=== PATIENT | female | born 1950 | race Caucasian/White ===

== ENCOUNTER 2020-01-24 13:02 | Emergency (ER) | payer OTHER ==
--- OUTSIDE RECORDS SUMMARY | 2020-01-24 13:08 | XMS REPORT ---
:1950 [facility] Address [address] [place] [address] [address]. [address] [place] [address] Care Team Providers Name Role Phone Unavailable Unavailable Unavailable Problems This patient has no known problems. Allergies, Adverse Reactions, Alerts This patient has no known allergies or adverse reactions. Medications This patient has no known medications. Results Test Description Test Time Test Comments Text Results Atomic Results Result Comments RAD, SPINE, 2019-04-04 12:52:00 Reason for FINAL REPORT PATIENT ID: LUMBAR, COMPLETE Exam:->History of [id number] Lumbar Spine (MIN 4 VIEWS) lumbar fusion (Z98.1); Radiographs: Four views Low back pain without including sciatica, unspecified flexion-extension views. back pain laterality, HISTORY: Pain. History unspecified chronicity of lumbar fusion. Low (M54.5) back pain.COMPARISON: None available. DISCUSSION:Some of the osseous structures are partially obscured by stool and bowel gas. There are five non-rib bearing lumbar vertebral bodies.Posterior fusion with transpedicular screws and interconnecting rods at L5-S1 with intervertebral disc prosthesis with grade 2 anterolisthesis and moderate disc space narrowing.No instability identified flexion-extension views.Remaining lumbar spine is unremarkable.No displaced fracture or compression deformity is identified. Facets:The facet joints are unremarkable. IMPRESSION:Status post posterior fusion of L5 on S1 with grade 2 anterolisthesis and moderate disc space narrowing despite having a disc prosthesis. No instability on flexion-extension views. Signed: Miguel Angel Ojeda MDReport Verified Date/Time: 04/04/2019 12:52:10 Reading Location: [facility] Reading Room [address] [place] [address]
[2020-01-24 14:00] LABS: Absolute Lymphocytes (CBC) 0.8 K/uL (0.7-4.9); Basophils % 0.4 % (0-1.3); Hematocrit 45.1 % (36.0-45.0); Lymphocytes % 10.7 % (15.3-44.8); MPV 7.5 fL (7.6-11.3); RBC Red Blood Cell Count 4.91 M/uL (3.86-4.86)
[2020-01-24 14:19] LABS: BUN Blood Urea Nitrogen 7 mg/dL (7-18); Bicarbonate 24 mmol/L (21-32); Glucose Level 151 mg/dL (74-106); Potassium 3.6 mmol/L (3.5-5.1); Sodium Level 132 mmol/L (136-145); Troponin (Emerg Dept Use Only) < 0.02 ng/mL (0.0-0.045)
--- NOTE | 2020-01-24 14:24 | ER ---
Nurse's Notes Formerly [facility] Name: Sierra Tejada Age: 69 yrs Sex: Female : 1950 Arrival Date: 01/24/2020 Time: 13:06 Bed 15 Private MD: Diagnosis: Pain in right shoulder Presentation: 01/23 13:09 Chief complaint: Patient states: R arm pain all the way to the neck started around 7-8 ca1 this morning. Denies cough, congestion and fever. Coronavirus screen: Patient denies fever greater than 100.4F, cough, shortness of breath, or difficulty breathing. Proceed with normal triage process. Ebola Screen: Patient negative for fever greater than or equal to 101.5 degrees Fahrenheit, and additional compatible Ebola Virus Disease symptoms Patient denies exposure to infectious person. Patient denies travel to an Ebola-affected area in the 21 days before illness onset. No symptoms or risks identified at this time. Initial Sepsis Screen: Does the patient meet any 2 criteria? No. Patient's initial sepsis screen is negative. Does the patient have a suspected source of infection? No. Patient's initial sepsis screen is negative. Risk Assessment: Do you want to hurt yourself or someone else? Patient reports no desire to harm self or others. Onset of symptoms was January 24, 2020 at 07:00. 13:09 Method Of Arrival: Ambulatory ca1 13:09 Acuity: ANNA 3 ca1 Historical: - Allergies: 13:13 Iodine; ca1 13:35 atorvastatin; ca1 13:35 Isosorbide Mononitrate; ca1 13:35 Losartan; ca1 - Home Meds: 13:31 Coreg CR 80 mg Oral CM24 1 cap once daily [Active]; propafenone 325 mg Oral cp12 1 cap ca1 daily [Active]; Premarin 1.25 mg Oral tab 1 tab weekly [Active]; vitamin E 1,000 unit Oral cap 1,000 unit daily [Active]; loratadine 10 mg oral tab 1 tab as needed [Active]; aspirin 325 mg Oral TbEC 1 tab once daily [Active]; levothyroxine 125 mcg tab 1 tab once daily [Active]; furosemide 20 mg Oral tab 1 tab every other day [Active]; 13:35 amlodipine 5 mg tab 1 tab once daily [Active]; ca1 - PMHx: 13:13 Hypertension; Intestinal problems/pain; Myocardial infarction; CAD; ca1 - PSHx: 13:13 Stent; Tonsillectomy; Hysterectomy; Cholecystectomy; Back Surgery; Cataracts; ca1 - Immunization history:: Adult Immunizations up to date, Pneumococcal vaccine is up to date, Flu vaccine is not up to date. - Social history:: Smoking status: Patient reports the use of cigarette tobacco products, smokes one pack cigarettes per day. - Family history:: not pertinent. - Hospitalizations: : No recent hospitalization is reported. Screenin:30 Abuse screen: Denies threats or abuse. Nutritional screening: No deficits noted. vc Tuberculosis screening: No symptoms or risk factors identified. Fall Risk None identified. Assessment: 14:29 General: Appears in no apparent distress. uncomfortable, Behavior is calm, cooperative, vc appropriate for age. Pain: Complains of pain in anterior aspect of right shoulder Pain radiates to right sternocleidomastoid. Vital Signs: 13:09 BP 170 / 97; Pulse 82; Resp 16 S; Temp 97.4(TE); Pulse Ox 96% on R/A; Weight 94.35 kg ca1 (R); Height 5 ft. 6 in. (167.64 cm) (R); Pain 10/10; 14:00 BP 164 / 91; Pulse 81; Resp 14; Pulse Ox 97% on R/A; vc 13:09 Body Mass Index 33.57 (94.35 kg, 167.64 cm) ca1 ED Course: 13:06 Patient arrived in ED. fj1 13:11 Triage completed. ca1 13:13 Arm band placed on right wrist. ca1 13:17 Amando Rao MD is Attending Physician. rn 13:30 Patient has correct armband on for positive identification. Placed in gown. Side rails vc up X2. plywood and veneer repairer on. Pulse ox on. NIBP on. 13:31 Ana M Farias, ELIAZAR is Primary Nurse. vc 13:32 EKG done, by business office technician. reviewed by Amando Rao MD. at1 13:53 XRAY Chest (1 view) In Process Unspecified. EDMS 14:45 No provider procedures requiring assistance completed. IV discontinued, intact, vc bleeding controlled, No redness/swelling at site. Pressure dressing applied. Administered Medications: No medications were administered Outcome: 14:23 Discharge ordered by . rn 14:45 Discharged to home ambulatory. vc 14:45 Condition: good 14:45 Discharge instructions given to patient, Instructed on discharge instructions, follow up and referral plans. Demonstrated understanding of instructions, follow-up care. 14:46 Patient left the ED. vc Signatures: Dispatcher [employer] EDAmando Duque MD MD rn Xenia Miner, sales broker EKG Tat1 Sienna Zabala RN RN ca1 Ana M Farias RN RN vc James, Frank fj1
--- NOTE | 2020-01-24 14:24 | EDPHYS ---
Physician Documentation [facility] Name: Sierra Tejada Age: 69 yrs Sex: Female : 1950 Arrival Date: 01/24/2020 Time: 13:06 Bed 15 Private MD: ED Physician Amando Rao HPI: 01/23 13:40 This 69 yrs old Female presents to ER via Ambulatory with complaints of rn ROTATOR CUFF PAIN THAT IS RADIATING AND SHOOTING UP THE NECK. 13:40 The patient or guardian complains of pain. The complaints affect the anterior aspect of rn right shoulder. Onset: The symptoms/episode began/occurred at an unknown time. Modifying factors: The symptoms are alleviated by nothing. the symptoms are aggravated by movement, lifting weight, bending arm. Severity of symptoms: At their worst the symptoms were moderate, in the emergency department the symptoms are unchanged. The patient has experienced similar episodes in the past. Reports chronic bilateral shoulder/rotator cuff problems, hurts to move arms and lift things, has been told needs surgery but has been pushed back. Denies new injury. No chest pain/sob/productive cough. Reports today pain shot up to neck so came in for eval as she has had 2 heart attacks in past. Reports that these symptoms do not feel anything like previous heart attacks. . Historical: - Allergies: 13:13 Iodine; ca1 13:35 atorvastatin; ca1 13:35 Isosorbide Mononitrate; ca1 13:35 Losartan; ca1 - Home Meds: 13:31 Coreg CR 80 mg Oral CM24 1 cap once daily [Active]; propafenone 325 mg Oral cp12 1 cap ca1 daily [Active]; Premarin 1.25 mg Oral tab 1 tab weekly [Active]; vitamin E 1,000 unit Oral cap 1,000 unit daily [Active]; loratadine 10 mg oral tab 1 tab as needed [Active]; aspirin 325 mg Oral TbEC 1 tab once daily [Active]; levothyroxine 125 mcg tab 1 tab once daily [Active]; furosemide 20 mg Oral tab 1 tab every other day [Active]; 13:35 amlodipine 5 mg tab 1 tab once daily [Active]; ca1 - PMHx: 13:13 Hypertension; Intestinal problems/pain; Myocardial infarction; CAD; ca1 - PSHx: 13:13 Stent; Tonsillectomy; Hysterectomy; Cholecystectomy; Back Surgery; Cataracts; ca1 - Immunization history:: Adult Immunizations up to date, Pneumococcal vaccine is up to date, Flu vaccine is not up to date. - Social history:: Smoking status: Patient reports the use of cigarette tobacco products, smokes one pack cigarettes per day. - Family history:: not pertinent. - Hospitalizations: : No recent hospitalization is reported. ROS: 13:40 Constitutional: Negative for fever, chills, and weight loss, Eyes: Negative for injury, rn pain, redness, and discharge, Neck: Negative for injury, and swelling, Cardiovascular: Negative for chest pain, palpitations, and edema, Respiratory: Negative for shortness of breath, cough, wheezing, and pleuritic chest pain, Abdomen/GI: Negative for abdominal pain, nausea, vomiting, diarrhea, and constipation, Back: Negative for injury and pain, MS/Extremity: Negative for injury and deformity, Skin: Negative for injury, rash, and discoloration, Neuro: Negative for headache, weakness, numbness, tingling, and seizure. Exam: 13:40 Constitutional: This is a well developed, well nourished patient who is awake, alert, rn and in no acute distress. Head/Face: Normocephalic, atraumatic. Neck: Trachea midline, no thyromegaly or masses palpated, and no cervical lymphadenopathy. Supple, full range of motion without nuchal rigidity, or vertebral point tenderness. No Meningismus. Cardiovascular: Regular rate and rhythm. No pulse deficits. Respiratory: Speaking full sentences. No increased work of breathing, no retractions or nasal flaring. Abdomen/GI: soft, non-tender MS/ Extremity: Pulses equal, no cyanosis. Neurovascular intact. Full, normal range of motion. Equal circumference. Neuro: Awake and alert, GCS 15, oriented to person, place, time, and situation. Cranial nerves II-XII grossly intact. Motor strength 5/5 in all extremities. Sensory grossly intact. Cerebellar exam normal 14:20 ECG was reviewed by the Attending Physician. rn Vital Signs: 13:09 BP 170 / 97; Pulse 82; Resp 16 S; Temp 97.4(TE); Pulse Ox 96% on R/A; Weight 94.35 kg ca1 (R); Height 5 ft. 6 in. (167.64 cm) (R); Pain 10/10; 14:00 BP 164 / 91; Pulse 81; Resp 14; Pulse Ox 97% on R/A; vc 13:09 Body Mass Index 33.57 (94.35 kg, 167.64 cm) ca1 MDM: 13:17 Patient medically screened. rn 14:20 Differential diagnosis: tendonitis. Differential diagnosis: CT, CAD. Data reviewed: rn vital signs, nurses notes. Counseling: I had a detailed discussion with the patient and/or guardian regarding: the historical points, exam findings, and any diagnostic results supporting the discharge/admit diagnosis, lab results, radiology results, the need for outpatient follow up, to return to the emergency department if symptoms worsen or persist or if there are any questions or concerns that arise at home. Special discussion: I discussed with the patient/guardian in detail that at this point there is no indication for admission to the hospital. It is understood, however, that if the symptoms persist or worsen the patient needs to return immediately for re-evaluation. ED course: Neg trop, no acute infarct on ecg, will dc home as symptoms consistent with her tendinitis. Not likely cardiac given negative findings and does not feel at all like her previous MIs. . 01/23 13:33 Order name: Basic Metabolic Panel; Complete Time: 14:19 rn 01/23 13:33 Order name: CBC with Diff; Complete Time: 14:38 rn 01/23 13:33 Order name: Troponin (emerg Dept Use Only); Complete Time: 14:19 rn 01/23 13:33 Order name: XRAY Chest (1 view) rn 01/23 13:33 Order name: EKG; Complete Time: 13:34 rn 01/23 14:36 Order name: CBC Smear Scan; Complete Time: 14:38 EDMS 01/23 13:33 Order name: IV Start; Complete Time: 14:00 rn 01/23 13:33 Order name: Cardiac monitoring; Complete Time: 13:58 rn 01/23 13:33 Order name: EKG - Nurse/Tech; Complete Time: 13:34 rn 01/23 13:33 Order name: Labs collected and sent; Complete Time: 13:58 rn 01/23 13:33 Order name: O2 Per Protocol; Complete Time: 13:59 rn 01/23 13:33 Order name: O2 Sat Monitoring; Complete Time: 14:00 rn EC:20 Rate is 78 beats/min. Rhythm is regular. QRS is positive in lead I and negative in lead rn aVF. [place] interval is normal. QRS interval is normal. QT interval is normal. No Q waves. T waves are Normal. No ST changes noted. Clinical impression: NSR w/ Non-specific ST/T Changes. Interpreted by me. Reviewed by me. Administered Medications: No medications were administered Disposition: 01/24/20 14:23 Discharged to Home. Impression: Pain in right shoulder. - Condition is Stable. - Discharge Instructions: Joint Pain, Arthritis, Shoulder Pain. - Medication Reconciliation Form, Thank You Letter, Antibiotic Education, Prescription Opioid Use form. - Follow up: Private Physician; When: As needed; Reason: Recheck today's complaints, Re-evaluation by your physician. - Problem is chronic. - Symptoms have improved. Signatures: Dispatcher [employer] EDMS Amando Rao MD MD rn Acob, ELIAZAR El RN ca1 Ana M Farias RN RN vc Corrections: (The following items were deleted from the chart) 14:46 14:23 01/24/2020 14:23 Discharged to Home. Impression: Pain in right shoulder. vc Condition is Stable. Forms are Medication Reconciliation Form, Thank You Letter, Antibiotic Education, Prescription Opioid Use. Follow up: Private Physician; When: As needed; Reason: Recheck today's complaints, Re-evaluation by your physician. Problem is chronic. Symptoms have improved. rn
[2020-01-24 14:36] LABS: Blood Morphology Comment NOT SEEN (NOT SEEN); Platelet Estimate ADEQ; Urine White Blood Cell Casts OK
--- NOTE | 2020-01-24 14:36 | EKG ---
Test Date: 2020-01-24 Test Time: 13:19:35 Acoustical Installer: LETY MEASUREMENT RESULTS: Intervals: Rate: 78 AL: 188 QRSD: 96 QT: 408 QTc: 465 [place]: P: 41 AL: 188 QRS: -67 T: 37 INTERPRETIVE STATEMENTS: Normal sinus rhythm Incomplete right bundle branch block Left anterior fascicular block Possible Anteroseptal infarct, age undetermined Abnormal ECG Compared to ECG 09/28/2017 14:18:55 Incomplete right bundle-branch block now present Left anterior fascicular block now present Left-axis deviation no longer present Myocardial infarct finding still present Electronically Signed On 01-24-20 14:35:44 CDT by Vishnu Barron
--- NOTE | 2020-01-24 14:42 | RAD REPORT ---
EXAM DESCRIPTION: RAD - Chest Single View - 01/24/2020 1:53 pm CLINICAL HISTORY: right arm and neck pain, hx of both IA and shoulder problem, chest and shoulder pa in on the right COMPARISON: September 2017 TECHNIQUE: AP portable chest image was obtained 01/24/2020 1:53 pm . FINDINGS: No focal lung parenchymal process seen. Hazy opacification of the lateral left base matche s the comparison. This is believed to be soft tissue artifact. Heart and vasculature are normal. No m easurable pleural effusion and no pneumothorax. No acute bony abnormality seen. No acute aortic findi ngs suspected. IMPRESSION: No acute cardiopulmonary process.
[2020-01-24 15:08] VITALS: TEMP 97.4
[2020-01-24 15:09] VITALS: BP 164/91; O2SAT 97
== END 2020-01-24 14:46 | disposition home or self-care (01) ==
LOC: ER 13:02
DX: M25.511 Pain in right shoulder (principal); I10 Essential (primary) hypertension; I25.2 Old myocardial infarction; I25.10 Atherosclerotic heart disease of native coronary artery without angina pectoris; Z88.8 Allergy status to other drugs, medicaments and biological substances
CPT/HCPCS: 36415; 71045; 80048; 84484; 85025; 93005; 99284

== ENCOUNTER 2021-03-06 00:10 | Observation (INO) | payer OTHER ==
--- OUTSIDE RECORDS SUMMARY | 2021-03-06 00:13 | XMS REPORT | Continuity of Care Document ---
:1950 Author Organization [facility] t Address [address] [place] [address] Care Team Providers Name Role Phone LAWRENCE Primary Care Physician Unavailable SYSTEM, NOT IN Attending Clinician Unavailable BRODY Attending Clinician Unavailable Sp GARCIA Attending Clinician Shama REBOLLEDO Attending Clinician Brody GARCIA Attending Clinician SHAMA Attending Clinician Unavailable Payers Payer Name Policy Type Policy Number Effective Date Expiration Date S dave MEDICARE PART A [id number] 2014 AND B 00:00:00 CIG[employer] SENIOR [id number] 2015 SUPPLEMENT-SECOND 00:00:00 IAN ONLY GENERIC [id number] 2015 2015 00:00:00 00:00:00 Problems Condition Condition Condition Status Onset Resolution Last Treating Co mments Source Name Details Category Date Date Treatment Clinician Date 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 Social History Social Habit Start Date Stop Date Quantity Comments Source History of tobacco Cigarette Smoker MD William use Sex Assigned At MD Olsen on Cigarettes smoked 2017-02-28 2017-02-28 MD Rafal diallo current (pack per 00:00:00 00:00:00 day) - Reported Alcohol intake 2017-02-28 2017-02-28 Current drinker of MD William 00:00:00 00:00:00 alcohol (finding) Alcohol Comment 2016-02-16 2016-02-16 occaisional beer MD William 00:00:00 00:00:00 Smoking Status Start Date Stop Date Source Current every day smoker 2017-02-28 00:00:00 MD William Medications Ordered Filled Start Stop Current Ordering Indication Dosage Frequency Signature Comments Components Source Medication Medication Date Date Medication? Clinician (SIG) Name Name aspirin 325 2020-0 Yes 325mg Take 325 M D mg tablet 7-30 mg by Anderso 13:58: mouth as n 07 needed. carvedilol 2020-0 Yes 80mg Take 80 mg M D (COREG CR) 7-30 by mouth. Rafal rso 80 mg 24 hr 13:58: n capsule 07 estrogens, 2020-0 Yes 1.25mg Take 1.25 MD conjugated, 7-30 mg by Anderso (PREMARIN) 13:58: mouth. 3x n 1.25 mg 07 a week tablet propafenone 2020-0 Yes 325mg Take 325 M D (RYTHMOL 7-30 mg by Anderso SR) 325 mg 13:58: mouth n 12 hr 07 daily. capsule levothyroxi 2020-0 Yes Take by ne 7-30 mouth Anderso (SYNTHROID, 13:58: daily. n LEVOTHROID) 07 125 mcg tablet vitamin E 2020-0 Yes Take by 1,000 units 7-30 mouth Anderso capsule 13:58: daily. n 07 amLODIPine 2020-0 Yes 5mg Take 5 mg MD (NORVASC) 5 7-30 by mouth Rafal rso mg tablet 13:58: daily. n 07 loratadine 2020-0 Yes Take by 10 mg cap 7-30 mouth as Raúl o 13:58: needed. n 07 cyanocobala 2020-0 Yes 1000ug Take 1,000 MD min 7-30 mcg by Anderso (vitamin 13:58: mouth n B-12) 1000 07 daily. mcg tablet [id number] 2019- No 5mg Take 5 mg MD besylate 5 05-21 by mouth. And erso mg 13:22: 00:00 Reported n () 19 :00 on tablet 02/28/2017 hydrochloro 2019-2019- No 12.5mg Take 12.5 MD thiazide 04-30 07-09 mg by Anderso (HYDRODIURI 13:45: 00:00 mouth. 3x n L) 12.5 mg 57 :00 a week tablet ascorbic 2019- No 1000mg Take 1,000 MD acid-multiv 04-30 07-09 mg by Raúl o it-min 13:45: 00:00 mouth n (EMERGEN-C) 57 :00 daily. 1,000 mg pwep furosemide Yes 1{tbl} Take 1 MD (LASIX) 20 6-09 tablet by Rafal rso mg tablet 00:00: mouth 3 n 00 (three) times a week Monday, Monday and Monday. atorvastati 2016-10 2020- No daily. MD gan (LIPITOR) 2-04-30 Anderso 40 mg 00:00: 00:00 n tablet 00 :00 Vital Signs Vital Name Observation Time Observation Value Comments Source Systolic blood pressure 2020-05-21 13:04:26 146 mm[Hg] MD William Diastolic blood pressure 2020-05-21 13:04:26 84 mm[Hg] MD William Heart rate 2020-05-21 13:04:26 72 /min MD Maco plata Body temperature 2020-05-21 13:04:26 37 Deena MD Huma felipe Respiratory rate 2020-05-21 13:04:26 18 /min MD Huma felipe Body weight 2020-04-30 13:40:00 96 kg MD Maco plata BMI 2020-04-30 13:40:00 34.01 kg/m2 MD Maco plata Procedures Procedure Date / Time Performed Performing Clinician [facility] e CYTOLOGY NON-SENIOR BOILER OPERATOR 2020-05-21 14:01:00 Jeff Skinner MD INTERPRETATION CYTOLOGY HPV 16/18 GENOTYPING 2020-05-21 14:01:00 Jeff Skinner MD AND HIGH RISK POOL CARCINOEMBRYONIC ANTIGEN 2020-04-30 12:46:00 Petr Sesay MD Plan of Care Planned Activity Planned Date Details Comments Source Future Scheduled 2020-06-23 INFLUENZA VACCINE (#1) [facility] 00:00:00 [code = INFLUENZA Medical Ce nter VACCINE (#1)] Future Scheduled [address] [facility] - Test 00:00:00 WELLNESS (YEAR 2 or Medical Center FIRST YEAR if no IPPE) [code = MEDICARE ANNUAL WELLNESS (YEAR 2 or FIRST YEAR if no IPPE)] Future Scheduled 2014 PNEUMOCOCCAL 65+ YRS [facility] - Test 00:00:00 (1 of 1 - Medical Center [id number] PCV13) [code = PNEUMOCOCCAL 65+ YRS (1 of 1 - [id number] PCV13)] Future Scheduled [address] [facility] 00:00:00 [facility] breast (procedure) [code = 895141761] Future Scheduled [address] [facility] Test 00:00:00 [facility] colon (procedure) [code = 342342984] Encounters Start End Encounter Admission Attending Care Care Encounter Source Date/Time Date/Time Type Type Clinicians Facility Department ID 2020-04-27 Outpatient TRINA OLIVAS MDA [id number] 10:43:33 ASHLEY gan 2021-05-18 2021-05-18 Outpatient KATHLEEN SKINNER TRINA MENA [id number] 00:00:00 00:00:00 JEFF gan 2021-05-18 2021-05-18 Outpatient KATHLEEN SKINNERTRINA MDA [id number] 00:00:00 00:00:00 JEFF gan 2020-05-21 2020-05-21 Outpatient KATHLEEN SKINNER TRINA MENA [id number] 07:33:56 08:57:36 JEFF gan 2020-05-21 2020-05-21 Outpatient KATHLEEN SKINNERTRINA MDA [id number] 07:32:56 08:57:30 JEFF gan 2020-05-05 2020-05-05 Outpatient KATHLEEN SKINNER MDA MDA [id number] 00:00:00 00:00:00 JEFF gan 2020-05-05 2020-05-05 Outpatient KATHLEEN SKINNER MDA MDA [id number] 00:00:00 00:00:00 JEFF gan 2020-04-30 2020-04-30 Outpatient KATHLEEN SESAY MDA MDA [id number] 07:24:54 07:44:51 PETR gan 2020-04-30 2020-04-30 Outpatient KATHLEEN SKINNER MDA MDA [id number] 00:00:00 00:00:00 JEFF gan 2020-04-30 2020-04-30 Outpatient KATHLEEN SKINNER MDA MDA [id number] 00:00:00 00:00:00 JEFF gan 2019-05-07 2019-05-07 Outpatient KATHLEEN SKINNER MDA MDA [id number] 07:54:23 07:54:23 JEFF gan Results Test Description Test Time Test Comments Results Result Comments Source Cytology Non-Vehicle Assembler Interpretation 2020-05-29 21:43:00 Test Item Value Reference Range Interpretation Comme nts Gross p3spiHLuMXToq7mgBNHvLwDdZTBOk4cme086kWEaNZfaVmOaYvZ7zYKbKVUszKAhj5E5CEqeiVTyFnUU fvxjlOt7e9owG6kngb7jIM7vWuCeAIMjLBNeQVGcziUbFVNvdBBeGA3ukiGBl55jubk7a1baCGclhZ7n SGQiEIPonWUnc8G1XHgvfLGvUOOHi3KaaPYkSZ7kjhj Description 0b9rtVYqqa7dmu1IlUsRmUDGiRKEaSFDkfrHkPOEthJSyFV4nbnIijqe2x8apYGMlZm1zLGOdrtrpS4v fmaVqaLHyGaZxbRNeI167piaxgjf5b1dkQWSgJo2jvOtjP2kmebUtfKJwYpCcqIQmWTYrsKCGdRAxpmF msYQ2lEdnGjWqUBLvq02lsrbjF7lmqaDklABiMoUjwO (test code = DrT5kvRd4yT329TGWvLJiei9dpp5MtRePzQGBnSFTjGKAjroUdRVUpI68tDWTIU494NHBvJLAeYYUuz9 xks6lgJ2thphLwxBIrImQqbLTlKWWlDGo2kW4Kk8kvr6txtmMwuER2QWSrOQZnT1BuZV3wRTOfpANyC7 geVUUgKQpttuLmnrV0ZIPdxWDkOIbnpnEcRxOdL2QcZ [id number]) R4sJOoakCEmAoD4ZASdCSW1URohEADfEQraBnu2YCB4X1afRKV1I0wnzdCydzLpYAFmyBV2JnkiwuVfP qarC1QpEU80FTktfLKtRkk4RZJpGKh4VMljYDLeUVDfQxl0JFn6Z9qeMLWnKGIkD3BaMA8iGZZoTya5D KGdVSshezHnEMA8LPdyLUVtGAY4VZNkzTIsSoj5EFWn RLN3Z0uksfEkbsN1O6zgwAOuHVJiB3lkYZYeQGhjR1BqEN3cBBfuBbo8MER7FChltiPiSNo1OXrpMSJz LEv9TJCtqBNwQqN1BLWaMQL8XFldkgUrxyR5INsvoEPbPIpnJ3htETTkMHhmD4RgWE4oDOtyBxt8VIAh TdtcfoZsMjZnMTgfKOJrYwAzVDDraCWdJfK6FTCpFAM kMVwbbnUdpoMqOQtnoDBqFnV1W9avXXQcLUFxC4ZfNR0rERFyLos9FYZ9RFzmjoUjXOhguwQkrlGqVyt 0SWY3IQe6Pqkhp8V5rXQmlMFjwRfdgiTfdAVgHYuvSgQlS325RPFjRUfdWITenpnkZpz1t1bnGwShUPC nfU7bDKD8jYmoxkSgzTXoZZhsUmV8Q006VZY0IUbwPV GhjeczFAf7k3nwHoWcIAOeuB2pUJU7tE6YPrbcCJBgxcatRFs1HVezEQFfjtztLwT7ABleOXCjnEq6XY uiXCOhavV7FsrrIKLerAdtRBexMTYkIbbnYGlpOYOhCFQ4HiHqQVUjf3Bwqej3KlUiEcHtTVSODskdfP XpHAL8WXP6VfDmIGMtBdiwWMAcCQ7qlCvcbSp9cEaoV WUascQ9hCMbAQibn6xnVCN5h5qtqzhsBZHrGFheRx1syCOnnIrsKoLqCEWfDHe3sW58SRNjzW9brSVqU Rh6WKFtriRwbUbkoY4pRwClNWXWZDFwxVOtJPYrTWD2pwElDYR3qGV0yCYwQUXlba9ioMFfeHh7 Major Cellular atypia A Classificati on (test code = 9839) Diagnosis g4yeoICnMGWltJA6FIYiGZXlh1fxn4NdfXUqqTIxKUrtfTZdnlJbcx57qXS7kT12GH2aTYFtXxF9HZQa fxO6Sso4JYEhLQKrwBGfL792v5nib1vgdwFcwGJ6hOulDDCkOFSsNOtjWXSfIwPqOE3lKE4ksQIAPE1k oCnmS0qlUbmzzMClFMObHfqcPQRxhMo5VtTuvRvcCzM (test code = cIZEjyKwfLaNmcW2umMIvy6CqJSGmxFTipXhqhbevWC6orOM4hiOuf1Sity0umCwfpuY1w64uYWNvpFQ hvkWkgLJcRAEuWB27XXUddyPZvCnmqNBhlUGuwDUgrV54paJdVOhcgkDuWvD3gaSeqMAcfNwqVPUbc6x wauplbIDhyoQgHXjOV6UhTXYgEVHbwn4= 34) Comment e4skhUBwWQAodVK9DKSqDMZyn7nic5RnuTSscYIgYZmcrQWsrkGfbp85tFY9aY31JZ5vIIMlRbP0JUEt emJ5Mbb9SKBxFGArmASuI626f7joh7jtueVelMI0cYvdYBLlUKZhXVvpHELgBpHwJGfxGLU3wgGyhjMy lLtzkYCvsLDxFZlMEeH6PFF9cW4oKThGJN9YBjClIHQ (test code = pCHYqOTimFT7kG9H0iQCeSiglVAH0 9835) Retained/Bio r6pmlHPiQGPtsAD9QUDaGTHdr9okb5YgoYCanZPeJOmidITxqrLizr20vHM7hB22RO2uVHDxRqH2SIGv pqB1Zss6SVAeLHMdyMPyY408f4ldu2nbfsVsaID0jZioNNHvUQOxOLipVGQxTxGtIaI2TDbjZHW1YQXi T3jrPOK6 marker Testing (test code = 9838) Informationa t5mxuSXiEXGgeIYaQyUiGEUgIVMsv9rbELPziHWhUeFdZnLsWdQsNzhvdLByYRGcVdGht7hrk433eXVb w2ckGJStVhN2tAJyQGAmrZUuP433AHBfBOstr7aty0KbXSUdeAXqx2G0NCNYLCbaVEGIZFm6d2xbEvFz VmQ2kDOhEEdvH2ygfjIvlWXsZCUxUGg9iJ68IEJqwX5 l Points lpFLjFYrtcoYcPlF7PSdwAEEqJnM1AQMkpWFaOMThL0neBKJnDRowPSRqEEycoKHwEEJ4gKjhj9V8uOS kxTDnqPlbFoHzOpJzOgYTc8OyZFl5hMidV0FiRDZdHmY0hPTcZVXrAGhyFXGpFZMibvN7qQ30TBhrxdY 0xQAuu7Vnu04zt380rC1msOChVWJ7ZMHaUWPxcJArVM (test code = CdETS8HCXzoGCiR9qtSJQwSW2rhldjVJxfTIcoVGEfvCU5XTOuvREgF3DrKRGsDDofSZWvcsb6QiApXz 4cbHByqSjeNNmyl1cnr4kstMErOle1XEOqXyVfGpbqYTwsz0Epf0bvGCRrzx2tDKK8gPUchZauz6V8hQ DuCMQwuDQbhkPzLLArWcQ1WJfgPH6kek19TOKsDPJ2m 9836) t5osWRfsYzgntOfpMQcVUjoE3DpHAVhw527RWWyB5YtGTJmi1V3ybCyUiHzPPWtoCK2gbV4WLEeRKj2f GZbiyW5sfBacPFwN4zypQ6hZEFuIY1beprfa9iyFQyrADisHAUrrNO9nmJ7RWRvkLXdU0VxqL8bIGItF QasOGKacus9VpIwSg5prXFkhVfxONirYhizHAcdWSZz duGkpnRpaYrbAAKrYBFfUMyrVBQaSDzvKVPrJXVgZlLvgZmkbMazsJ5sCaFqVpZuDAauOE2eCJEjH8df zNAdTHZuXANrE4sfMgYogE6niLvrMKgctmW8IWwtM77oDOX9OVX0exEfFXGcrtFzXZYfPPJwBP4bwZIb SYNkEAAwRM7rLBD4EDuvuRSrQXUkHSHxTKIbz0WsAL2 sYWOlaAIgIPJ3HZVxz9UdD8IcDUS0BNGtmA5kRRRuyMYVNDCPXIMFzfLxhvFkdiUMQKJqu0cgI1icGJ3 oCXmyFl9uREQvzokvBYJnuIZnzrFmDKUxHDAtKJToj2ZqFDhnxjIocm27XBEwNL7ze4GrC7wewRVrxYz 5HRKlZPSdQMDek9JiJOObrv94YIHoStabqQuoBNWfHj 1dLe2gLIVzmaMaPYH7OiDGRR0lllohiDNkfPtoxc2qTEThKSqkYEZmBDSkKbUnzSNiYhCwBiSzeDlrnF udIpftAfHiNATkVGonA1gwHtIqWwGlLvpvPYV9 Lab Abnormal Interpretati on (test code = 92832-2) [facility] Genotyping and High Risk [id number] 18:32:00 Test Item Value Reference Range Interpretation Comments HPV Type 16 (test Negative Negative, code = 9853) Indeterminate HPV Type 18 (test Negative Negative, code = 9854) Indeterminate HPV High Risk Negative Negative, Non-16/18 (test code Indeterminate = 9855) Informational Points The rosario HPV Test (test code = 9852) ([facility], [place], [place]) is a qualitative in vitro diagnostic test for the detection of Human Papillomavirus in cervical specimens collected in PreservCyt Solution or SurePathTM Preservation Fluid. The test utilizes amplification of target DNA by the Polymerase Chain Reaction (PCR) and nucleic acid hybridization for the detection of 14 high-risk (HR) HPV types in a single analysis. The test specifically identifies types HPV16 and HPV18 while concurrently detecting the other high risk types (31, 33, 35, 39, 45, 51, 52, 56, 58, 59, 66, and 68). The performance characteristics of this test were validated and determined by the [facility] cytology laboratory. These validation analyses have confirmed the accurate performance of the assay of the outboard motorboat rigger s stated limit of detection for the target of the test in various specimen types. The [facility] cytology laboratory is authorized under Clinical Laboratory Improvement Amendments (CLIA) to perform high-complexity testing. The [facility] Department of Pathology is accredited by the [employer] ([employer]). MD Vargas, SPINE, LUMBAR, COMPLETE (MIN 4 VIEWS)2019-04-04 12:52:00Reason for Exam:->History of lumbar fusion (Z98.1); Low back pain without sciatica, unspecified back pain laterality, unspecified chronicity (M54.5)FINAL REPORT Lumbar Spine Radiographs: Four views including flexion-extension views. HISTORY: Pain. History of lumbar fusion. Low back pain.COMPARISON: None available. DISCUSSION:Some of the osseous structures are partially obscured by stool and bowel gas. There are five non-rib bearing lumbar vertebral bodies.Posterior fusion with transpedicular screws and interconnecting rods at L5-S1 with intervertebral disc prosthesis with grade 2 anterolisthesis and moderate disc space narrowing.No instability identified flexion-extension views.Remaining lumbar spine is unremarkable.Nodisplaced fracture or compression deformity is identified. Facets:The facet joints are unremarkable. IMPRESSION:Status post posterior fusion of L5 on S1 with grade 2 anterolisthesis and moderate disc space narrowing despite having a disc prosthesis. No instability on flexion-extension views. Signed: Miguel Angel Ojeda MDReport Verified Date/Time: 04/04/2019 12:52:10 Reading Location: [facility] Reading Room [address] [place], [place] [id number]
[2021-03-06 00:51] LABS: Absolute Lymphocytes (CBC) 2.7 K/uL (0.7-4.9); Basophils % 0.8 % (0-1.3); Hematocrit 43.1 % (36.0-45.0); Lymphocytes % 50.9 % (15.3-44.8); MPV 7.4 fL (7.6-11.3); RBC Red Blood Cell Count 4.69 M/uL (3.86-4.86)
[2021-03-06 00:55] LABS: Protime INR 0.93
[2021-03-06 01:08] LABS: ALT/SGPT 23 U/L (12-78); AST/SGOT 18 U/L (15-37); Albumin 3.7 g/dL (3.4-5.0); Alkaline Phosphatase 87 U/L (45-117); BUN Blood Urea Nitrogen 8 mg/dL (7-18); Bicarbonate 27 mmol/L (21-32); Bilirubin Direct < 0.1 mg/dL (0-0.2); Bilirubin Total 0.4 mg/dL (0.2-1.0); Glucose Level 102 mg/dL (74-106); NT PRO-BNP 122 pg/mL (<125); Potassium 3.8 mmol/L (3.5-5.1); Protein, Total 6.6 g/dL (6.4-8.2); Sodium Level 140 mmol/L (136-145); Troponin (Emerg Dept Use Only) < 0.02 ng/mL (0.0-0.045)
--- NOTE | 2021-03-06 01:25 | P.HP ---
Certification for Inpatient Patient admitted to: Observation With expected LOS: <2 Midnights Patient will require the following post-hospital care: None Practitioner: I am a practitioner with admitting privileges, knowledge of patient current condition, hospital course, and medical plan of care. Services: Services provided to patient in accordance with Admission requirements found in Title 42 Section 412.3 of the Code of Federal Regulations Patient History Date of Service: 03/06/21 Reason for admission: Chest pain History of Present Illness: 70-year-old female with history of CAD status post stent, hypertension, tobacco abuse presents emergency department for chest pain . patient reports that she has been having ongoing chest pain throughout the evening, before bed while she is reading describes pain as aching, patient without will confirm her sleep with a sharp chest pain radiating to her left arm with associated hypertension. Patient violated in the emergency department, labs unremarkable, initial troponin negative chest x-ray unremarkable, ED provider wishes to admit for chest pain rule out. Patient had NSTEMi in 2017 with stent placement. Allergies iodine Allergy (Unknown, Verified 09/24/17 00:11) Anaphylaxis Home Medications: Aspirin [Aspirin EC 81 MG] 81 mg PO DAILY #90 tablet. 09/24/17 Clopidogrel Bisulfate [Plavix*] 75 mg PO DAILY #30 tablet 09/24/17 Estrogens, Conjugated [Premarin] 1.25 mg PO DAILY 09/24/17 Levothyroxine [Synthroid*] 125 mcg PO DAILY 09/24/17 Metoprolol Tartrate [Lopressor*] 25 mg PO BID #60 tab 09/24/17 Pantoprazole [Protonix Tab] 40 mg PO DAILY #30 tab 09/24/17 Propafenone HCl [Propafenone HCl ER] 325 mg PO DAILY 09/24/17 Rosuvastatin [Crestor*] 10 mg PO BEDTIME #30 tab 09/24/17 lisinopriL [Prinivil*] 10 mg PO DAILY #30 tab 09/24/17 - Past Medical/Surgical History Diabetic: No -: HTN -: hypoglycemia -: colorectal cancer -: titanium henri in back -: cataracts -: artificial lenses in eyes -: back surgery -: Cholecystectomy -: hysterectomy -: cataracts removed Psychosocial/ Personal History: Retired, lives with family - Family History Brother -: Hypertension Mother -: Cancer Notes: breast cancer - Social History Smoking Status: Current every day smoker Counseled patient to stop smoking for: less than 10 minutes Smoking therapy provided: No Alcohol use: Yes Caffeine use: Yes Place of Residence: Home Review of Systems 10-point ROS is otherwise unremarkable Cardiovascular: Chest Pain, As per HPI Physical Examination - Physical Exam General: Alert, In no apparent distress HEENT: Atraumatic, PERRLA, Mucous membr. moist/pink, EOMI, Sclerae nonicteric Neck: Supple, 2+ carotid pulse no bruit, No LAD, Without JVD or thyroid abnormality Respiratory: Clear to auscultation bilaterally, Normal air movement Cardiovascular: Regular rate/rhythm, Normal S1 S2 Gastrointestinal: Normal bowel sounds, No tenderness Musculoskeletal: No tenderness Integumentary: No rashes Neurological: Normal gait, Normal speech, Normal strength at 5/5 x4 extr, Normal tone, Normal affect Lymphatics: No axilla or inguinal lymphadenopathy - Studies Laboratory Data (last 24 hrs) 03/06/21 00:40: PT 10.7, INR 0.93 03/06/21 00:40: WBC 5.20, Hgb 14.3, Hct 43.1, Plt Count 231 03/06/21 00:40: Sodium 140, Potassium 3.8, BUN 8, Creatinine 0.68, Glucose 102, Magnesium 2.0, Total Bilirubin 0.4, AST 18, ALT 23, Alkaline Phosphatase 87 Assessment and Plan - Plan Assessment Chest pain-history CAD rule out ACS Hypertension Hypothyroidism Plan Chest pain-history CAD rule out ACS: Monitor on telemetry, trend troponins, cardiology consult in place. Continue daily aspirin, continue home medications. Patient not tolerant of statins, will obtain lipid and thyroid panel with morning labs. DVT prophylaxis Lovenox 40 mg subcutaneous once daily. Appreciate further input from cardiology. Hypertension: Continue home medications, appears stable this time. Hypothyroidism: Continue home medications, thyroid panel morning labs Discharge Plan: Home Plan to discharge in: 24 Hours - Advance Directives Does patient have a Living Will: Yes Does patient have a Durable POA for Healthcare: Yes - Code Status/Comfort Care Code Status Assessed: Yes (Full code) Critical Care: No Time Spent Managing Pts Care (In Minutes): 55
--- NOTE | 2021-03-06 02:00 | ER ---
Nurse's Notes [facility] Name: Sierra Tejada Age: 70 yrs Sex: Female : 1950 Arrival Date: 03/06/2021 Time: 00:13 Bed 19 Private MD: Diagnosis: Chest pain, unspecified Presentation: 03/06 00:32 Chief complaint: Patient states: left sided chest pain started this evening , felt like iw indigestion, took two ASA ,went away and came back at 11 pm, pain is stabbing, intermittent, also SOB and has left arm pain, BP was high , hx IN with one stent placement. Coronavirus screen: At this time, the client does not indicate any symptoms associated with coronavirus-19. Ebola Screen: Patient negative for fever greater than or equal to 101.5 degrees Fahrenheit, and additional compatible Ebola Virus Disease symptoms Patient denies exposure to infectious person. Patient denies travel to an Ebola-affected area in the 21 days before illness onset. No symptoms or risks identified at this time. Initial Sepsis Screen: Does the patient meet any 2 criteria? No. Patient's initial sepsis screen is negative. Does the patient have a suspected source of infection? No. Patient's initial sepsis screen is negative. Risk Assessment: Do you want to hurt yourself or someone else? Patient reports no desire to harm self or others. Onset of symptoms was March 06, 2021. 00:32 Method Of Arrival: Ambulatory iw 00:32 Acuity: ANNA 2 iw Historical: - Allergies: 00:45 atorvastatin; iw 00:45 Isosorbide Mononitrate; iw 00:45 Iodine; iw 00:45 Losartan; iw - Home Meds: 00:45 amlodipine 5 mg tab 1 tab once daily [Active]; aspirin 325 mg Oral TbEC 1 tab once iw daily [Active]; Coreg CR 80 mg Oral CM24 1 cap once daily [Active]; furosemide 20 mg Oral tab 1 tab Every other day [Active]; levothyroxine 125 mcg tab 1 tab once daily [Active]; loratadine 10 mg Oral tab 1 tab as needed [Active]; Premarin 1.25 mg Oral tab 1 tab WEEKLY [Active]; propafenone 325 mg Oral cp12 1 cap daily [Active]; vitamin E 1,000 unit Oral cap 1000 unit daily [Active]; olmesartan oral 40 mg oral once daily [Active]; - PMHx: 00:45 CAD; Hypertension; Intestinal problems/pain; Myocardial infarction; iw - PSHx: 00:45 Heart stents; Cholecystectomy; Hysterectomy; Tonsillectomy; Back Surgery; Cataracts; iw - Immunization history:: Adult Immunizations Client reports receiving the 2nd dose of the Covid vaccine. - Social history:: Smoking status: Patient reports the use of cigarette tobacco products, smokes one pack cigarettes per day. Screenin:11 Abuse screen: Denies threats or abuse. Denies injuries from another. Nutritional ad5 screening: No deficits noted. Tuberculosis screening: No symptoms or risk factors identified. Fall Risk No fall in past 12 months (0 pts). Secondary diagnosis (15 points) IV access (20 points). Ambulatory Aid- None/Bed Rest/Nurse Assist (0 pts). Gait- Normal/Bed Rest/Wheelchair (0 pts) Mental Status- Oriented to own ability (0 pts). Total Vincent Fall Scale indicates Low Risk Score (25-44 pts). Fall prevention measures have been instituted. Side Rails Up X 2 Frequent Obs/Assesments occuring Family Present and informed to notify staff if they need to leave bedside. Assessment: 00:30 General: Appears in no apparent distress. comfortable. General: Appears Behavior is ad5 calm, cooperative, appropriate for age. Pain: Complains of pain in anterior aspect of left upper chest Pain radiates to left arm Pain began gradually, 2 hours ago. Alleviated by medications. Neuro: No deficits noted. Level of Consciousness is awake, alert, obeys commands, Oriented to person, place, time, situation, Appropriate for age Impregnator are equal bilaterally Moves all extremities. Gait is steady, Speech is normal, Facial symmetry appears normal, Pupils are PERRLA, Intact. Cardiovascular: Reports chest pain, shortness of breath, Denies diaphoresis, nausea, syncope, vomiting, Heart tones S1 S2 present Capillary refill < 3 seconds Clubbing of nail beds is absent JVD is absent Patient's skin is warm and dry. Pulses are all present. Rhythm is regular Chest pain. Respiratory: Airway is patent Trachea midline Respiratory effort is even, unlabored, Respiratory pattern is regular, symmetrical, Breath sounds are clear bilaterally. GI: No deficits noted. : No deficits noted. EENT: No deficits noted. Derm: No deficits noted. Skin is pink, warm \T\ dry. Musculoskeletal: No deficits noted. No signs and/or symptoms reported regarding the musculoskeletal system. 01:28 Reassessment: Patient appears in no apparent distress at this time. Patient and/or ad5 family updated on plan of care and expected duration. Pain level reassessed. Patient is alert, oriented x 3, equal unlabored respirations, skin warm/dry/pink. Patient states feeling better. 02:58 Reassessment: Patient appears in no apparent distress at this time. Patient and/or ad5 family updated on plan of care and expected duration. Pain level reassessed. Patient is alert, oriented x 3, equal unlabored respirations, skin warm/dry/pink. Pt ambulatory to restroom with steady gait. Repositioned back into stretcher for comfort. Bed low and locked, bedrails up x 2, call light within reach. Pt denies other needs or c/o at this time. Will continue to monitor. Vital Signs: 00:32 BP 148 / 103; Pulse 98; Resp 18 S; Pulse Ox 98% on R/A; Weight 91.17 kg; Height 5 ft. 6 iw in. (167.64 cm); Pain 4/10; 01:10 BP 162 / 94; Pulse 70; Resp 17 S; Pulse Ox 96% on R/A; ad5 02:00 BP 153 / 81; Pulse 67; Resp 18 S; Pulse Ox 97% on R/A; ad5 00:32 Body Mass Index 32.44 (91.17 kg, 167.64 cm) iw ED Course: 00:13 Patient arrived in ED. es 00:22 Eulogio Rivers MD is Attending Physician. 7 00:35 campus monitor on. Pulse ox on. NIBP on. Door closed. Noise minimized. Warm blanket ad5 given. 00:35 Initial lab(s) drawn, by me, sent to lab. ad5 00:40 Triage completed. iw 00:45 Arm band placed on. iw 01:07 Bunny Christian is Primary Nurse. ad5 01:07 XRAY Chest (1 view) In Process Unspecified. EDMS 01:11 Patient has correct armband on for positive identification. Bed in low position. Call ad5 light in reach. Side rails up X2. 01:12 No provider procedures requiring assistance completed. Inserted saline lock: 22 gauge ad5 in right forearm, using aseptic technique. Patient maintains SpO2 saturation greater than 95% on room air. 01:59 Josh Gamino DO is Hospitalizing Provider. [facility] 02:00 Patient admitted, IV remains in place. ad5 Administered Medications: No medications were administered Outcome: :59 Decision to Hospitalize by Provider. 7 02:00 Admitted to ER Hold. Please see [facility] for further documentation. ad5 02:00 Condition: stable 02:00 Instructed on the need for admit, Demonstrated understanding of instructions. 09:14 Patient left the ED. aa5 Signatures: Dispatcher [employer] EDLa Walton Irene, RN RN Faustina Robledo RN RN aa5 Eulogio Rivers MD MD [facility] Bunny Christian ad5
--- NOTE | 2021-03-06 02:00 | EDPHYS ---
Physician Documentation [facility] Name: Sierra Tejada Age: 70 yrs Sex: Female : 1950 Arrival Date: 03/06/2021 Time: 00:13 Bed 19 Private MD: ED Physician Eulogio Rivers HPI: 03/06 01:06 This 70 yrs old Female presents to ER via Ambulatory with complaints of Chest mh7 Pain, High Blood Pressure, Shortness Of Breath. 01:06 The patient or guardian reports chest pain that is located primarily in the substernal mh7 area. Onset: today. The pain does not radiate. Associated signs and symptoms: Pertinent positives: shortness of breath, Pertinent negatives: abdominal pain, cough, diaphoresis, dizziness, headache, lower extremity pain, lower extremity swelling, lightheadedness, nausea, near syncope, palpitations, recent travel, syncope, vomiting. The chest pain is described as causing indigestion. Duration: The patient or guardian reports multiple episodes, that are intermittent, that wax and wane. Modifying factors: The symptoms are alleviated by nothing. the symptoms are aggravated by nothing. Severity of pain: At its worst the pain was moderate today, in the emergency department the pain has improved mildly. Historical: - Allergies: 00:45 atorvastatin; iw 00:45 Isosorbide Mononitrate; iw 00:45 Iodine; iw 00:45 Losartan; iw - Home Meds: 00:45 amlodipine 5 mg tab 1 tab once daily [Active]; aspirin 325 mg Oral TbEC 1 tab once iw daily [Active]; Coreg CR 80 mg Oral CM24 1 cap once daily [Active]; furosemide 20 mg Oral tab 1 tab Every other day [Active]; levothyroxine 125 mcg tab 1 tab once daily [Active]; loratadine 10 mg Oral tab 1 tab as needed [Active]; Premarin 1.25 mg Oral tab 1 tab WEEKLY [Active]; propafenone 325 mg Oral cp12 1 cap daily [Active]; vitamin E 1,000 unit Oral cap 1000 unit daily [Active]; olmesartan oral 40 mg oral once daily [Active]; - PMHx: 00:45 CAD; Hypertension; Intestinal problems/pain; Myocardial infarction; iw - PSHx: 00:45 Heart stents; Cholecystectomy; Hysterectomy; Tonsillectomy; Back Surgery; Cataracts; iw - Immunization history:: Adult Immunizations Client reports receiving the 2nd dose of the Covid vaccine. - Social history:: Smoking status: Patient reports the use of cigarette tobacco products, smokes one pack cigarettes per day. ROS: 01:06 Constitutional: Negative for fever, chills, and weight loss, Eyes: Negative for injury, mh7 pain, redness, and discharge, ENT: Negative for injury, pain, and discharge, Neck: Negative for injury, pain, and swelling, Abdomen/GI: Negative for abdominal pain, nausea, vomiting, diarrhea, and constipation, Back: Negative for injury and pain, : Negative for injury, bleeding, discharge, and swelling, MS/Extremity: Negative for injury and deformity, Skin: Negative for injury, rash, and discoloration, Neuro: Negative for headache, weakness, numbness, tingling, and seizure, Psych: Negative for depression, anxiety, suicide ideation, homicidal ideation, and hallucinations, Allergy/Immunology: Negative for hives, rash, and allergies, Endocrine: Negative for neck swelling, polydipsia, polyuria, polyphagia, and marked weight changes, Hematologic/Lymphatic: Negative for swollen nodes, abnormal bleeding, and unusual bruising. Exam: 01:06 Constitutional: This is a well developed, well nourished patient who is awake, alert, mh7 and in no acute distress. Head/Face: Normocephalic, atraumatic. Eyes: Pupils equal round and reactive to light, extra-ocular motions intact. Lids and lashes normal. Conjunctiva and sclera are non-icteric and not injected. Cornea within normal limits. Periorbital areas with no swelling, redness, or edema. Neck: Trachea midline, no thyromegaly or masses palpated, and no cervical lymphadenopathy. Supple, full range of motion without nuchal rigidity, or vertebral point tenderness. No Meningismus. Chest/axilla: Normal chest wall appearance and motion. Nontender with no deformity. No lesions are appreciated. Cardiovascular: Regular rate and rhythm with a normal S1 and S2. No gallops, murmurs, or rubs. Normal PMI, no JVD. No pulse deficits. Respiratory: Lungs have equal breath sounds bilaterally, clear to auscultation and percussion. No rales, rhonchi or wheezes noted. No increased work of breathing, no retractions or nasal flaring. Abdomen/GI: Soft, non-tender, with normal bowel sounds. No distension or tympany. No guarding or rebound. No evidence of tenderness throughout. Back: No spinal tenderness. No costovertebral tenderness. Full range of motion. Skin: Warm, dry with normal turgor. Normal color with no rashes, no lesions, and no evidence of cellulitis. MS/ Extremity: Pulses equal, no cyanosis. Neurovascular intact. Full, normal range of motion. Neuro: Awake and alert, GCS 15, oriented to person, place, time, and situation. Cranial nerves II-XII grossly intact. Motor strength 5/5 in all extremities. Sensory grossly intact. Cerebellar exam normal. Normal gait. Psych: Awake, alert, with orientation to person, place and time. Behavior, mood, and affect are within normal limits. Vital Signs: 00:32 BP 148 / 103; Pulse 98; Resp 18 S; Pulse Ox 98% on R/A; Weight 91.17 kg; Height 5 ft. 6 iw in. (167.64 cm); Pain 4/10; 01:10 BP 162 / 94; Pulse 70; Resp 17 S; Pulse Ox 96% on R/A; ad5 02:00 BP 153 / 81; Pulse 67; Resp 18 S; Pulse Ox 97% on R/A; ad5 00:32 Body Mass Index 32.44 (91.17 kg, 167.64 cm) iw MDM: 01:57 Differential diagnosis: abnormal EKG, acute myocardial infarction, acute pericarditis, mh7 anxiety, coronary artery disease chest wall pain, congestive heart failure costochondritis, pericarditis, pneumonia. HEART Score: History: Moderately Suspicious (1), ECG: Non specific repolarization disturbance / LBTB / PM (1), Age: > or = 65 years (2), Risk Factors: 1 or 2 risk factors (1), [Hypertension] Troponin: < or = 1 x Normal Limit (0), Total Score = 5. Data reviewed: vital signs, nurses notes, lab test result(s), cardiac enzymes, CBC, electrolytes, EKG, radiologic studies, plain films. Data interpreted: Pulse oximetry: on room air is 96 %. Interpretation: normal. Counseling: I had a detailed discussion with the patient and/or guardian regarding: the historical points, exam findings, and any diagnostic results supporting the discharge/admit diagnosis, the presence of at least one elevated blood pressure reading (>120/80) during this emergency department visit, lab results, radiology results, the need for further work-up and treatment in the hospital. 01:59 Patient medically screened. [facility] 03/06 00:32 Order name: Basic Metabolic Panel 03/06 00:32 Order name: CBC with Diff; Complete Time: 01:55 03/06 00:32 Order name: LFT's; Complete Time: : 03/06 00:32 Order name: Magnesium; Complete Time: :55 03/06 00:32 Order name: NT PRO-BNP; Complete Time: 03/06 00:32 Order name: PT-INR; Complete Time: 03/06 00:32 Order name: Troponin (emerg Dept Use Only); Complete Time: :55 03/06 00:32 Order name: Basic Metabolic Panel; Complete Time: : [facility] 03/06 02:17 Order name: SARS-COV-2 RT PCR [facility] 03/06 04:56 Order name: Troponin I [facility] 03/06 04:56 Order name: Lipid Profile [facility] 03/06 04:56 Order name: T4 Free [facility] 03/06 04:56 Order name: Thyroid Stimulating Hormone [facility] 03/06 00:32 Order name: XRAY Chest (1 view) 03/06 00:32 Order name: EKG; Complete Time: 00:33 03/06 00:32 Order name: Cardiac monitoring; Complete Time: 01:07 03/06 00:32 Order name: EKG - Nurse/Tech; Complete Time: 01:07 03/06 00:32 Order name: IV Saline Lock; Complete Time: 01:07 03/06 00:32 Order name: Labs collected and sent; Complete Time: 01: 03/06 00:32 Order name: O2 Per Protocol; Complete Time: 01: 03/06 00:32 Order name: O2 Sat Monitoring; Complete Time: 01:07 Administered Medications: No medications were administered Disposition: 03/06/21 01:59 Hospitalization ordered by Josh Gamino for Observation. Preliminary diagnosis is Chest pain, unspecified. - Bed requested for Telemetry/MedSurg (observation). - Status is Observation. aa5 - Condition is Stable. - Problem is new. - Symptoms have improved. Signatures: Dispatcher [employer] EDMO Amber Bolton, RN RN iw RigobetroFadiic em1 Faustina Ospina RN RN aa5 Balaji Reilly, [employer]-C [employer]-Cla1 Eulogio Rivers MD MD 7 jP Gutiérrez tt3 Corrections: (The following items were deleted from the chart) 01:25 01:14 CORONAVIRUS+MR.LAB.BRZ ordered. EDMO EDMS 04:01 01:59 Hospitalization Ordered by Josh Prezas DO for Observation. Preliminary diagnosis is Chest pain, unspecified. Bed requested for Telemetry/MedSurg (observation). Status is Observation. Condition is Stable. Problem is new. Symptoms have improved. mh7 07:05 04:01 03/06/2021 01:59 Hospitalization Ordered by Josh Prezas DO for Observation. tt3 Preliminary diagnosis is Chest pain, unspecified. Bed requested for [facility] ER HOLD. Status is Observation. Condition is Stable. Problem is new. Symptoms have improved. iw 08:32 07:05 03/06/2021 01:59 Hospitalization Ordered by Josh Prezas DO for Observation. em1 Preliminary diagnosis is Chest pain, unspecified. Bed requested for Telemetry/MedSurg (observation). Status is Observation. Condition is Stable. Problem is new. Symptoms have improved. tt3 09:14 08:32 03/06/2021 01:59 Hospitalization Ordered by Josh Prezas DO for Observation. aa5 Preliminary diagnosis is Chest pain, unspecified. Bed requested for Telemetry/MedSurg (observation). Status is Observation. Condition is Stable. Problem is new. Symptoms have improved. em1
[2021-03-06] MEDS ORDERED: ONDANSETRON 4 MG/2 ML VIAL IV PRN (03:34)
[2021-03-06 03:43] VITALS: BMI 32.4
[2021-03-06 04:56] LABS: HDL Cholesterol 69 mg/dL (40-60); LDL Cholesterol, Calculated 92 (<130); Troponin I < 0.02 ng/mL (0.0-0.045)
--- NOTE | 2021-03-06 07:41 | P.DS ---
Admission Date: 03/06/21 Discharge Date: 03/06/21 Primary Care Provider: Dr. Condon; Cardiology-Dr. Hung Disposition: AMA-LEFT AGAINST MEDICAL ADVIC Discharge Condition: GOOD Reason for Admission: Chest pain Consultations: Cardiology-Dr. Benitez Procedures: COVID: Negative CXR: COMPARISON: 2017 FINDINGS: The lungs appear clear of acute infiltrate. The heart is normal size. Aorta is tortuous/ectatic IMPRESSION: No acute abnormalities displayed Impression: Chest pain-history CAD rule out ACS Hypertension Atrial fibrillation not on chronic anticoagulation therapy Brief History of Present Illness: Date of Service: 03/06/21 Reason for admission: Chest pain History of Present Illness: 70-year-old female with history of CAD status post stent, hypertension, tobacco abuse presents emergency department for chest pain . patient reports that she has been having ongoing chest pain throughout the evening, before bed while she is reading describes pain as aching, patient without will confirm her sleep with a sharp chest pain radiating to her left arm with associated hypertension. Patient violated in the emergency department, labs unremarkable, initial troponin negative chest x-ray unremarkable, ED provider wishes to admit for chest pain rule out. Patient had NSTEMi in 2017 with stent placement. Allergies iodine Allergy (Unknown, Verified 09/24/17 00:11) Anaphylaxis Home Medications: Aspirin [Aspirin EC 81 MG] 81 mg PO DAILY #90 tablet. 09/24/17 Clopidogrel Bisulfate [Plavix*] 75 mg PO DAILY #30 tablet 09/24/17 Estrogens, Conjugated [Premarin] 1.25 mg PO DAILY 09/24/17 Levothyroxine [Synthroid*] 125 mcg PO DAILY 09/24/17 Metoprolol Tartrate [Lopressor*] 25 mg PO BID #60 tab 09/24/17 Pantoprazole [Protonix Tab] 40 mg PO DAILY #30 tab 09/24/17 Propafenone HCl [Propafenone HCl ER] 325 mg PO DAILY 09/24/17 Rosuvastatin [Crestor*] 10 mg PO BEDTIME #30 tab 09/24/17 lisinopriL [Prinivil*] 10 mg PO DAILY #30 tab 09/24/17 - Past Medical/Surgical History Diabetic: No -: HTN -: hypoglycemia -: colorectal cancer -: titanium henri in back -: cataracts -: artificial lenses in eyes -: back surgery -: Cholecystectomy -: hysterectomy -: cataracts removed Psychosocial/ Personal History: Retired, lives with family - Family History Brother -: Hypertension Mother -: Cancer Notes: breast cancer - Social History Smoking Status: Current every day smoker Counseled patient to stop smoking for: less than 10 minutes Smoking therapy provided: No Alcohol use: Yes Caffeine use: Yes Place of Residence: Home Review of Systems 10-point ROS is otherwise unremarkable Cardiovascular: Chest Pain, As per HPI Physical Examination - Physical Exam General: Alert, In no apparent distress HEENT: Atraumatic, PERRLA, Mucous membr. moist/pink, EOMI, Sclerae nonicteric Neck: Supple, 2+ carotid pulse no bruit, No LAD, Without JVD or thyroid abnormality Respiratory: Clear to auscultation bilaterally, Normal air movement Cardiovascular: Regular rate/rhythm, Normal S1 S2 Gastrointestinal: Normal bowel sounds, No tenderness Musculoskeletal: No tenderness Integumentary: No rashes Neurological: Normal gait, Normal speech, Normal strength at 5/5 x4 extr, Normal tone, Normal affect Lymphatics: No axilla or inguinal lymphadenopathy - Studies Laboratory Data (last 24 hrs) 03/06/21 00:40: PT 10.7, INR 0.93 03/06/21 00:40: WBC 5.20, Hgb 14.3, Hct 43.1, Plt Count 231 03/06/21 00:40: Sodium 140, Potassium 3.8, BUN 8, Creatinine 0.68, Glucose 102, Magnesium 2.0, Total Bilirubin 0.4, AST 18, ALT 23, Alkaline Phosphatase 87 Assessment and Plan - Plan Assessment Chest pain-history CAD rule out ACS Hypertension Hypothyroidism Plan Chest pain-history CAD rule out ACS: Monitor on telemetry, trend troponins, cardiology consult in place. Continue daily aspirin, continue home medications. Patient not tolerant of statins, will obtain lipid and thyroid panel with morning labs. DVT prophylaxis Lovenox 40 mg subcutaneous once daily. Appreciate further input from cardiology. Hypertension: Continue home medications, appears stable this time. Hypothyroidism: Continue home medications, thyroid panel morning labs Discharge Plan: Home Plan to discharge in: 24 Hours - Advance Directives Does patient have a Living Will: Yes Does patient have a Durable POA for Healthcare: Yes - Code Status/Comfort Care Code Status Assessed: Yes (Full code) Critical Care: No Time Spent Managing Pts Care (In Minutes): 55 Hospital Course: Patient presented with chest pain. Patient with history of CAD, hypertension, and atrial fibrillation. Patient not on chronic anticoagulation therapy. Patient was monitored and observed. No significant EKG changes noted. Cardiac enzymes negative x2. Due to her history cardiology was consulted. Patient felt better. She did not want wait for cardiology. Patient sees cardiology in [place] with Dr. Hung. She prefers to go home AGAINST MEDICAL ADVICE at this time and not wait for cardiology recommendation. She is without chest pain at this time. She plans to follow-up with her brand coordinator early next week. Recommend highly that she follow-up with Dr. Hung as the patient may require further evaluation and possible treatment. Patient plans to visit with him next week. At this time patient will continue with her current medications of Rythmol, Norvasc, carvedilol ER and olmesartan. Vital Signs/Physical Exam: Temp Pulse Resp BP Pulse Ox 70 17 151/89 H 95 03/06/21 04:00 03/06/21 04:00 03/06/21 04:00 03/06/21 04:00 General: Alert, In no apparent distress, Oriented x3, Cooperative HEENT: Atraumatic Neck: Supple Respiratory: Clear to auscultation bilaterally, Normal air movement Cardiovascular: Normal pulses, Regular rate/rhythm Gastrointestinal: Normal bowel sounds, Soft and benign, Non-distended, No tenderness, No masses, No rebound, No guarding Musculoskeletal: No erythema, No tenderness, No warmth Integumentary: No tenderness/swelling Neurological: Normal speech, Normal strength at 5/5 x4 extr, Normal tone, Normal affect Laboratory Data at Discharge: WBC 5.20 K/uL (4.3-10.9) 03/06/21 00:40 Hgb 14.3 g/dL (12.0-15.0) 03/06/21 00:40 Hct 43.1 % (36.0-45.0) 03/06/21 00:40 Plt Count 231 K/uL (152-406) 03/06/21 00:40 PT 10.7 SECONDS (9.5-12.5) 03/06/21 00:40 INR 0.93 03/06/21 00:40 Sodium 140 mmol/L (136-145) 03/06/21 00:40 Potassium 3.8 mmol/L (3.5-5.1) 03/06/21 00:40 BUN 8 mg/dL (7-18) 03/06/21 00:40 Creatinine 0.68 mg/dL (0.55-1.3) 03/06/21 00:40 Glucose 102 mg/dL (74-106) 03/06/21 00:40 Magnesium 2.0 mg/dL (1.8-2.4) 03/06/21 00:40 Total Bilirubin 0.4 mg/dL (0.2-1.0) 03/06/21 00:40 AST 18 U/L (15-37) 03/06/21 00:40 ALT 23 U/L (12-78) 03/06/21 00:40 Alkaline Phosphatase 87 U/L (45-117) 03/06/21 00:40 Troponin I < 0.02 ng/mL (0.0-0.045) 03/06/21 04:10 Triglycerides 85 mg/dL (<150) 03/06/21 04:10 Cholesterol 178 mg/dL (<200) 03/06/21 04:10 HDL Cholesterol 69 mg/dL (40-60) H 03/06/21 04:10 Cholesterol/HDL Ratio 2.58 03/06/21 04:10 Home Medications: Aspirin [Aspirin EC 81 MG] 81 mg PO DAILY #90 tablet. 09/24/17 Clopidogrel Bisulfate [Plavix*] 75 mg PO DAILY #30 tablet 09/24/17 Estrogens, Conjugated [Premarin] 1.25 mg PO DAILY 09/24/17 Levothyroxine [Synthroid*] 125 mcg PO DAILY 09/24/17 Metoprolol Tartrate [Lopressor*] 25 mg PO BID #60 tab 09/24/17 Pantoprazole [Protonix Tab] 40 mg PO DAILY #30 tab 09/24/17 Propafenone HCl [Propafenone HCl ER] 325 mg PO DAILY 09/24/17 Rosuvastatin [Crestor*] 10 mg PO BEDTIME #30 tab 09/24/17 lisinopriL [Prinivil*] 10 mg PO DAILY #30 tab 09/24/17 Physician Discharge Instructions: Patient left AGAINST MEDICAL ADVICE. Patient plans to follow-up with her brand coordinator early next week. Diet: AHA Activity: Ad rubio Followup: OOT,OOT [Primary Care Provider] - Time spent managing pt's care (in minutes): 55
--- NOTE | 2021-03-06 07:52 | RAD REPORT ---
EXAM DESCRIPTION: Ugo Single View03/06/2021 1:01 am CLINICAL HISTORY: Chest pain COMPARISON: 2017 FINDINGS: The lungs appear clear of acute infiltrate. The heart is normal size. Aorta is tortuous/e ctatic IMPRESSION: No acute abnormalities displayed
[2021-03-06 08:41] VITALS: BP 126/78; O2SAT 98
[2021-03-06] MEDS ORDERED: ASPIRIN EC 81 MG TAB PO SCH (09:00)
[2021-03-06] MEDS ORDERED: HEPARIN 5000 UNIT/ML 1 ML VIAL SQ SCH (09:00)
[2021-03-06] MEDS ORDERED: POTASSIUM CL SA 10 MEQ TAB PO ONE (09:00)
[2021-03-06] MEDS ORDERED: VALSARTAN 160 MG TAB PO SCH (12:00)
[2021-03-06] MEDS ORDERED: carvediloL 25 MG TAB PO SCH (18:00)
[2021-03-06] MEDS ORDERED: METOPROLOL TAR 25 MG TAB PO SCH (18:00)
[2021-03-06] MEDS ORDERED: AMLODIPINE 5 MG TAB PO SCH (19:00)
[2021-03-06] MEDS ORDERED: ATORVASTATIN 10 MG TAB PO SCH (21:00)
[2021-03-07] MEDS ORDERED: carvediloL 25 MG TAB PO SCH (06:00)
[2021-03-07] MEDS ORDERED: PROPAFENONE HCL 150 MG TAB PO SCH (09:00)
== END 2021-03-06 08:30 | disposition left against medical advice (07) ==
LOC: ER 00:10 → ERHOLD 01:14
PROVIDERS: ADMIT Family Medicine; ATTEND Family Medicine
DX: R07.9 Chest pain, unspecified (principal); Z53.29 Procedure and treatment not carried out because of patient's decision for other reasons; I25.10 Atherosclerotic heart disease of native coronary artery without angina pectoris; I48.91 Unspecified atrial fibrillation; I10 Essential (primary) hypertension; I25.2 Old myocardial infarction; E16.2 Hypoglycemia, unspecified; E03.9 Hypothyroidism, unspecified; F17.210 Nicotine dependence, cigarettes, uncomplicated; Z71.6 Tobacco abuse counseling; Z98.61 Coronary angioplasty status; Z20.822 Contact with and (suspected) exposure to COVID-19; Z85.038 Personal history of other malignant neoplasm of large intestine; Z88.8 Allergy status to other drugs, medicaments and biological substances; Z91.041 Radiographic dye allergy status; Z90.49 Acquired absence of other specified parts of digestive tract; Z90.710 Acquired absence of both cervix and uterus; Z82.49 Family history of ischemic heart disease and other diseases of the circulatory system; Z80.3 Family history of malignant neoplasm of breast
CPT/HCPCS: 93005; 85025; 80048; 36415; 83735; 85610; 80061; 80076; 84443; 84484 ×2; 84439; 83880; 71045; 99285; U0003; G0378 ×2

== ENCOUNTER 2023-06-25 08:23 | Emergency (ER) | payer OTHER ==
[2023-06-25] MEDS ORDERED: NA CHLORIDE 0.9% 100 ML ONE (09:16)
[2023-06-25] MEDS ORDERED: PIPERACIL/TAZO 3.375 GM VIAL IV ONE (09:16)
--- OUTSIDE RECORDS SUMMARY | 2023-06-25 09:24 | XMS REPORT | Clinical Summary ---
:1950 Author Organization [facility] MD [facility] Address [address] [place] [address] Care Team Providers Name Role Phone Aleks Condon MD Unavailable Aleks Condon MD Unavailable Elisha Watt Unavailable Richy Urrutia MD Unavailable Yo Gonzales MD Primary Care Provider Richy Urrutia MD Unavailable Allergies Active Allergy Reactions Severity Noted Date Comments Iodinated Contrast Media Swelling, Palpitations High 2015 CPR was done Medications Medication Sig Dispensed Refills Start Date End Date Status aspirin 81 mg cap Take 81 mg by 0 Active mouth as needed. carvedilol (COREG CR) Take 80 mg by 0 Active 80 mg 24 hr capsule mouth. estrogens, conjugated, Take 1.25 mg by 0 Active (PREMARIN) 1.25 mg mouth. 3x a week tablet propafenone (RYTHMOL Take 325 mg by 0 Active SR) 325 mg 12 hr mouth daily. capsule levothyroxine Take by mouth 0 Ac tive (SYNTHROID, LEVOTHROID) daily. 125 mcg tablet vitamin E 1,000 units Take by mouth 0 Active capsule daily. amLODIPine (NORVASC) 5 Take 5 mg by 0 Active mg tablet mouth daily. loratadine 10 mg cap Take by mouth as 0 Active needed. cyanocobalamin (VITAMIN Take 1,000 mcg by 0 Active B-12) 1000 mcg tablet mouth daily. furosemide (LASIX) 20 Take 1 tablet by 0 03/31/2020 Active mg tablet mouth 3 (three) times a week Monday, Monday and Monday. TURMERIC ORAL Take by mouth. 0 A ctive Active Problems Problem Noted Date Histologically confirmed moderate anal dysplasia 02/28 Tobacco use 02/28/2017 Essential (primary) hypertension 02/28/2017 Hypothyroidism 02/28/2017 Anxiety 02/28/2017 Encounters Date Type Specialty Care Team Description 06/28/2022 Procedure visit Colorectal Surgery Richy Urrutia Aty pical squamous cells of undetermined significance on cytologic smear of anus (ASC-US) 06/28/2022 Office Visit Colorectal Surgery Richy Urrutia Atypic al squamous cells of undetermined significance on cytologic smear of anus (ASC-US) 06/28/2022 Travel after 06/25/2022 Immunizations Name Administration Dates Next Due Moderna SARS-CoV-2 Vaccination 01/27/2021, 12/30/2020 Medical History Medical History Date Comments Hypertension Disorder of thyroid gland 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 02/28/2017 Tobacco use 02/28/2017 Essential (primary) hypertension 02/28/2017 Hypothyroidism 02/28/2017 Anxiety 02/28/2017 Social History Tobacco Use Types Packs/Day Years Used Date Smoking Tobacco: Every Day Cigarettes 1 Alcohol Use Standard Drinks/Week Comments Yes 1 (1 standard drink = 0.6 oz pure alcoho l) occaisional beer Sex Assigned at Date Recorded Not on file Job Start Date Occupation Industry Not on file Not on file Not on file Obstetrics History Last Filed Vital Signs Vital Sign Reading Time Taken Comments Blood Pressure 146/80 06/28/2022 8:07 AM CDT Pulse 60 06/28/2022 8:07 AM CDT Temperature 36.7 C (98.1 F) 06/28/2022 8:07 AM CDT Respiratory Rate 18 06/28/2022 8:07 AM CDT Oxygen Saturation - - Inhaled Oxygen Concentration - - Weight 90.1 kg (198 lb 10.2 oz) 06/28/2022 8:07 AM CDT Height - - Body Mass Index 31.92 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 [employer] Plan of Treatment Date Type Specialty Care Team Description 07/06/2023 Follow-Up Colorectal Surgery Jose Urrutia MD [address] [place], [place] [address] (Wo rk) 07/06/2023 Procedure visit Colorectal Surgery Jose Urrutia MD [address] [place], [place] [address] (Wo rk) Health Maintenance Due Date Last Done Comments COVID-19 Vaccination (3 - Moderna series) 03/24/20212020, 12/30/2020 Procedures Procedure Name Priority Date/Time Associated Diagnosis Comme nts CYTOLOGY HPV 16/18 Routine 06/28/2022 8:52 Atypical squamous R esults for this GENOTYPING AND HIGH AM CDT cells of procedur e are in RISK POOL undetermined the results significance on section. cytologic smear of anus (ASC-US) CYTOLOGY NON-PIGMENT PROCESSOR Routine 06/28/2022 8:52 Atypical squamous Res ults for this INTERPRETATION AM CDT cells of procedure are in undetermined the results significance on section. cytologic smear of anus (ASC-US) after 06/25/2022 Results (ABNORMAL) Cytology HPV 16/18 Genotyping and High Risk Pool (06/28/2022 8:52 AM CDT) Component Value Ref Range Test Analysis Performed Pathologis t Method Time At Signature HPV Type 16 Positive (A) Negative, 07/01/2022 [facility] Indetermi 6:17 PM jessie, CDT Invalid HPV Type 18 Negative Negative, 07/01/2022 [facility] Indetermi 6:17 PM jessie, CDT Invalid HPV High Risk Negative Negative, 07/01/2022 [facility] Non-16/18 Indetermi 6:17 PM jessie, CDT Invalid Informational The rosario HPV Test ([facility], [place], [place]) is a qualitative in vitro diagnostic test for the detection of Human Papillomavirus in cervical specimens collected in [employer]. T 07/01/2022 [facility] Points he test utilizes amplificati on of target DNA by the Polymerase Chain Reaction (PCR) and nucleic acid hybridization for the detection of 14 high-risk (HR) HPV types in a single analysis. The test specifi 6:17 PM andrew identifies types HPV16 and HPV18 while concurrently detecting the other high risk types (31, 33, 35, 39, 45, 51, 52, 56, 58, 59, 66, and 68). CDT The performance characterist ics of this test were validated and determined by the [facility] cytology laboratory. These validation analyses have confirmed the accurate performance of the assay of the fredo baughurer's stated limit of det ection for the target of the test in various specimen types. The [facility] cytology laborator y is authorized under Clinical Laboratory Improvement Amendments (CLIA) to perform high-complexity testing. The [facility] Department of Pathology is accredited by the [employer] (CAP). Specimen Anatomical Collection Method Collection Time Receive d Time (Source) Location / / Volume Laterality Swab (Anal 06/28/2022 8:52 AM 2:06 Canal) CDT PM CDT Richy Urrutia MD LAB CYTOLOGY ORDERABLES Performing Organization Address City/State/ZIP Code Phon e Number [facility] [place] [address] [address] [place] (ABNORMAL) Cytology Non-Retail Shift Supervisor Interpretation (06/28/2022 8:52 AM CDT) Component Value Ref Test Analysis Performed Pathologis t Range Method Time At Signature Gross 07/04/2022 [facility] Description 1 ThinPrep vial received 2:47 PM CDT Major Cellular atypia 07/04/2022 [facility] E lectronically Classification (A) 2:47 PM maggy d by Bart Luu MD on 07/04/2022 at 2:47 PM Diagnosis Anal canal, swab : 07/04/2022 [facility] Electronically 2:47 PM signed by Bart Satisfactory for evaluation, anal transformation zone comp onents present CDT MD Jus on Atypical squamous cells of undetermined significance (ASC-US ) 07/04/2022 at 2:47 PM Retained/Biomark SR: 1 S 07/04/2022 [facility] er Testing 2:47 PM CDT Informational Some tests 07/04/2022 [facility] Points reported here may 2:47 PM have been CDT developed and performance characteristics determined by [facility] and Laboratory Medicine. These tests have not been specifically cleared or approved by the U.S. Food and Drug Administration. Specimen Anatomical Collection Method Collection Time Receive d Time (Source) Location / / Volume Laterality Swab (Anal 06/28/2022 8:52 AM 2 2:06 Canal) CDT PM CDT Richy Urrutia MD LAB CYTOLOGY ORDERABLES Performing Organization Address City/State/ZIP Code Phon e Number [facility] [place] [address] [address] [place] after 06/25/2022 Insurance Payer Benefit Plan Subscriber ID Effective Phone Address Typ e / Group Dates MEDICARE MEDICARE PART [id number] 2014-Prese [phone] NOVFORMERLY [facility], [facility] Medicare A AND B nt [id number] SOLUTIONS [address] [place] [phone] CIGNA SENIOR CIGNA SENIOR [id number] 2015-Prese [address] Medigap CARE SUPPLEMENT-SE [place]HA Armstrong [place] ONLY [id number] Care Teams Estimating Engineer Relationship Specialty Start Date End Date Aleks Condon MD PCP - External Referring 07/02/[address] [place] [address] Aleks Condon MD PCP - External Follow Up 07/02/[address] [address] Yo Gonzales MD PCP - General Breast Surgery 03/29/[address] [place] [address] [id number] Richy Urrutia MD PCP - External Follow Up Colorectal Surgery 09/05/[address] [place] [id number] Elisha Watt PA Physician Station Master 12/30/[address] [place] [id number] Richy Urrutia MD Physician 12/30/[address] [place] [id number]
--- OUTSIDE RECORDS SUMMARY | 2023-06-25 09:25 | XMS REPORT | Continuity of Care Document ---
:1950 Author Organization [facility] t Address [address] [place] [address] [address] [place] [address] Care Team Providers Name Role Phone Julienne Orr Primary Care Physician [phone] Julienne Orr Attending Clinician Unavailable SYSTEM, PROVIDER NOT IN Attending Clinician Unavailable SUSAN HUNG Attending Clinician Unavailable Leslie Whitfield MD Attending Clinician Abbi Lyons MA Attending Clinician Unavailable Hany Sánchez MD Attending Clinician Laney Gibson Attending Clinician Kristal Yu RN Attending Clinician Unavailable Price Diop MD Attending Clinician Provider , Not In System Attending Clinician Unavailable DR JULIENNE ORR Attending Clinician Unavailable [phone] Attending Clinician Unavailable Jeff Skinner MD Attending Clinician Christina Gamboa RN Attending Clinician Unavailable YANIQUE Attending Clinician Unavailable JEFF SKINNER Attending Clinician Unavailable PETR SESAY Attending Clinician Unavailable KAILA WALKER Attending Clinician Unavailable TORIBIO ALVES Attending Clinician Unavailable LESLIE WHITFIELD Admitting Clinician Unavailable DR JULIENNE ORR Admitting Clinician Unavailable YANIQUE Admitting Clinician Unavailable Payers Payer Name Policy Type Policy Number Effective Date Expiration Date Jojo acosta MEDICARE - OP [id number] MEDICARE - OP [id number] GENERIC [id number] 2015 00:00:00 2015 00:00 :00 Problems Condition Condition Condition Status Onset Resolution Last Treating Co mments Source Name Details Category Date Date Treatment Clinician Date Diaphragma Diaphragma Disease Active M ethodi tic hernia tic hernia 03-14 st 00:00: Hospita 00 l Malignant Malignant Disease Active Overview: Methodi neoplasm neoplasm 03-[address] of of 00:00: g of this Hospita upper-oute upper-oute 00 note l r quadrant r quadrant might be of right of right different breast in breast in from the female, female, original. estrogen estrogen 03/14/23 receptor receptor office positive positive visit, new diagnosis left breast cancer: screening mammogram right asymmetry 02/14/23 diagnosti c right mammogram / ultrasoun d, 8mm mass right 11:00 middle depth, oval angular hypoechoi c 8mm mass right 11:00 5 cmfn5// 3 ultrasoun d core biopsy 8mm mass right 11:00 5 cmfn, ribbon marker at target, pathology invasive ductal cancer, grade 2, 03/31, ER 99/ LA 99/ Her2 1+ neg/ Her2 FISH neg/ Ki67 8% low, cT1N0, stage I.04/07/23 right sentinel node biopsy/ partial mastectom y, pathology invasive ductal can, grade 1, 1.2 cm, margins negative, 5 negative nodes, pT1c, pN0(sn), ER 99/ LA 99/ Her2 1+ neg/ Her2 FISH neg/ Ki67 8% low, prognosti c stage Ia. D/w Dr. Diop, Oncotype not ordered as pt will not agree to chemother apy and will not likely agree to AI.Last Assessmen t & Plan: Formattin g of this note might be different from the original. Right seroma aspirated . Pt is willing to consider treatment but wants to be closer to home, will see radiation and medical oncology in [place]. F/u for wound or in 6 mos. S/P S/P Disease Active Overview: Method i coronary coronary 03-[address] artery artery [facility]:00: [facility] note l placement placement might be different from the original. [facility]x [facility]. Coronary artery stent x 5 08/26/22. On Plavix with Dr. Susan Hung.Las t Assessmen t & Plan: Formattin g of this note might be different from the original. I d/w Dr. Hung, if patient has surgery in March she will have completed 6 months of anticoagu lation after stent which is his treatment plan. Patient can stop Plavix without bridge for 3 days prior to surgery, will change to baby aspirin (ok with me). He just saw patient for f/u and will provide clearance for surgery. 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 [facility] Tobacco Tobacco Disease Active Univers use use 02-28 ity of 00:00: [place] 00 MD [facility] Essential Essential Disease Active Uni vers (primary) (primary) 02-28 ity of hypertens[place] hypertens[place] [facility] Hypothyroi Hypothyroi Disease Active U nivers dism dism 02-28 ity of 00:00: [place] 00 MD [facility] Anxiety Anxiety Disease Active Univers 02-28 ity of 00:00: 00 MD [facility] Allergies, Adverse Reactions, Alerts Allergy Allergy Status Severity Reaction(s) Onset Inactive Treating Comm ents Source Name Type Date Date Clinician Codeine Propensi Active Other (See 2015-10 Extreme Me thodi ty to Comments) 11-[address] adverse 00:00: s Hospita reaction 00 l s to drug Iodine Propensi Active Altered 2015-10 IV Iodine Meth jayden ty to Mental 11-12 st adverse Status 00:00: Hospita reaction 00 l s to drug IODINATE Drug Active High Swelling MD D Class 4-26 Anderso CONTRAST 00:00: n MEDIA 00 IODINATE Drug Active High Swelling MD D Class 4-26 Anderso CONTRAST 00:00: n MEDIA 00 IODINATE Drug Active High Swelling MD D Class 4-26 Anderso CONTRAST 00:00: n MEDIA 00 IODINATE Drug Active High Swelling MD D Class 4-26 Anderso CONTRAST 00:00: n MEDIA 00 IODINATE Drug Active High Swelling MD D Class 4-26 Anderso CONTRAST 00:00: n MEDIA 00 IODINATE Drug Active High Swelling MD D Class 4-26 Anderso CONTRAST 00:00: n MEDIA 00 IODINATE Drug Active High Swelling MD D Class 4-26 Anderso CONTRAST 00:00: n MEDIA 00 Iodinate Propensi Active Palpitations CPR was Univers d ty to 02-15 done ity of Contrast adverse 00:00: [place] Media reaction 00 MD [facility] No Known MA Active UNKNOWN [facility] Family History Family Member Diagnosis Comments Start Date Stop Date Source Natural brother Testicular cancer [facility] Cousin Breast [facility] Natural mother Breast cancer [facility] Social History Social Habit Start Date Stop Date Quantity Comments Source History of tobacco Cigarette Smoker [facility] Gender identity [facility] Sexual orientation [facility] History of Social 2023-05-15 2023-05-[address] function 00:00:00 00:00:00 Hospital Tobacco use and 2023-03-14 2023-03-14 Smokeless tobacco Me thodist exposure 00:00:00 00:00:00 non-user Hospital Alcohol intake 2017-02-28 2017-02-28 Current drinker of Un iversity of 00:00:00 00:00:00 alcohol (finding) [facility] [place] Alcohol Comment 2016-02-16 2016-02-16 occaisional beer Uni versity of 00:00:00 00:00:00 [place] MD [facility] Cigarettes smoked 2016-02-16 2016-02-16 Univers ity of current (pack per 00:00:00 00:00:00 [place] Lorena Chavez ) - Reported Cancer Ce nter Sex Assigned At [address] [facility] 00:00:00 00:00:00 [facility] Center Smoking Status Start Date Stop Date Source Never smoked tobacco [facility] Smokes tobacco daily 2016-02-16 00:00:00 [facility] ity of [facility] Medications Ordered Filled Start Stop Current Ordering Indication Dosage Frequency Signature Comments Components Source Medication Medication Date Date Medication? Clinician (SIG) Name Name cyanocobala Yes 1000ug QD Take 1 Me thodi min 7-[address] (VITAMIN 09:25: (1,000 mcg Hos kaleb B-12) 1000 52 total) by l MCG tablet mouth daily. aspirin 2022- No Q24H daily. Methodi (ECOTRIN) 6-16 -16 st 81 MG 12:16: 00:00 Hospita enteric 22 :00 l coated tablet losartan 2022- No 50mg QD Take 1 Method i (COZAAR) 50 16 16 tablet (50 s t MG tablet 07:38: 00:00 mg total) Ho spita 44 :00 by mouth l daily. aspirin Yes 325mg Q6H Take 1 Methodi (Maricel 6-[address] Aspirin) 00:00: (325 mg Hospit a 325 MG 00 total) by l tablet mouth every 6 (six) hours as needed (pain). amLODIPine Yes 5mg QD Take 1 Metho di (NORVASC) 5 5-05 tablet (5 st mg tablet 00:00: mg total) Hos kaleb 00 by mouth l daily. clopidogreL 2022- No 75mg QD Take 1 Met hodi (PLAVIX) 75 5-05 06-16 tablet (75 s t mg tablet 00:00: 00:00 mg total) Ho spita 00 :00 by mouth l daily. Premarin 2022- No 1.25mg Q2D Take 1 Meth jayden 1.25 mg 5-02 06-[address] tablet 00:00: 00:00 (1.25 mg Hospit a 00 :00 total) by l mouth every other day. propafenone Yes 325mg QD Take 1 Met hodi SR (RYTHMOL 4-[address] SR) 325 MG 00:00: (325 mg Hosp rae 12 hr 00 total) by l capsule mouth daily. Synthroid Yes 125ug QD Take 1 Metho di 125 mcg 4-[address] tablet 00:00: (125 mcg Hospita 00 total) by l mouth daily. carvedilol Yes 80mg QD Take 1 Metho di CR (COREG 3-[address] CR) 80 MG 00:00: (80 mg Hospit a 24 hr 00 total) by l capsule mouth daily. aspirin 81 Yes 81mg Take 81 mg U nivers mg cap 06-28 by mouth ity of 08:23: as needed. [place] MD Richie gan [facility] carvedilol Yes 80mg Take 80 mg U nivers (COREG CR) 06-28 by mouth. ity of 80 mg 24 hr 08:23: [place] [facility] 21 MD Richie gan [facility] estrogens, Yes 1.25mg Take 1.25 Univers conjugated, 9-06 mg by ity of (PREMARIN) 08:23: [place]. 3x [place] 1.25 mg 21 a week tablet Richie [facility] propafenone Yes 325mg Take 325 U nivers (RYTHMOL 9-06 mg by ity of SR) 325 mg 08:23: mouth [place] 12 hr 21 daily. capsule Richie [facility] levothyroxi Yes Take by Uni vers ne 06-28 mouth ity of (SYNTHROID, 08:23: daily. [place] LEVOTHROID) 21 125 mcg Richie bojorquez [facility] vitamin E Yes Take by Unive rs 1,000 units 06-28 mouth ity of capsule 08:23: daily. [place] MD Richie gan [facility] amLODIPine Yes 5mg Take 5 mg Un donald (NORVASC) 5 06-28 by mouth ity of mg tablet 08:23: daily. [place] MD Richie gan [facility] loratadine Yes Take by Univ ers 10 mg cap -06 mouth as ity of 08:23: needed. MD Richie gan [facility] cyanocobala Yes 1000ug Take 1,000 Univers min 9-06 mcg by ity of (VITAMIN 08:23: mouth [place] B-12) 1000 21 daily. mcg tablet Richie gan [facility] TURMERIC Yes Take by Univer s ORAL -06 mouth. ity of 08:23: MD Richie gan [facility] aspirin 81 Yes 81mg Take 81 mg U nivers mg cap 06-28 by mouth ity of 08:23: as needed. MD Richie gan [facility] carvedilol Yes 80mg Take 80 mg U nivers (COREG CR) 06-28 by mouth. ity of 80 mg 24 hr 08:23: [place] capsule 21 MD Richie gan [facility] estrogens, Yes 1.25mg Take 1.25 Univers conjugated, 9-06 mg by ity of (PREMARIN) 08:23: mouth. 3x [place] 1.25 mg 21 a week tablet Richie gan [facility] propafenone Yes 325mg Take 325 U nivers (RYTHMOL 9-06 mg by ity of SR) 325 mg 08:23: mouth [place] 12 hr 21 daily. capsule Richie gan [facility] levothyroxi Yes Take by Uni vers ne 06-28 mouth ity of (SYNTHROID, 08:23: daily. [place] LEVOTHROID) 21 125 mcg Richie bojorquez [facility] vitamin E Yes [facility] units 06-28 mouth ity of capsule 08:23: daily. [place] MD Richie gan [facility] amLODIPine Yes 5mg Take 5 mg Un donald (NORVASC) 5 06-28 by mouth ity of mg tablet 08:23: daily. MD Richie gan [facility] loratadine Yes Take by [facility] ers 10 mg cap - mouth as ity of 08:23: needed. [place] 21 MD Richie gan [facility] cyanocobala Yes 1000ug Take 1,000 Univers min 9-06 mcg by ity of (VITAMIN 08:23: mouth [place] B-12) 1000 21 daily. mcg tablet [facility] TURMERIC Yes Take by Univer s ORAL 906 mouth. ity of 08:23: [place] 21 MD Richie gan [facility] furosemide Yes 1{tbl} Take 1 Uni vers (LASIX) 20 6- tablet by ity of mg tablet 00:00: mouth 3 (three) times a [place] Monday, [facility] Monday [facility] and Monday. furosemide Yes 20mg 1 tablet Met hodi (LASIX) 20 03-31 ([address] mg tablet 00:00: total). Hospi ta 00 l furosemide Yes 1{tbl} Take 1 Uni vers (LASIX) 20 6- tablet by ity of mg tablet 00:00: mouth 3 (three) MD juarez a [place] Monday, Cancer Monday [place] and Monday. Immunizations Ordered Filled Immunization Date Status Comments [facility] e Immunization Name Name Moderna SARS-CoV-2 2021-01-27 Completed Univer sity of Vaccination 00:00:00 [facility] SARS[facility] 2021-01-27 Completed Univer sity of Vaccination 00:00:00 [facility] SARS-CoV-2 2020-12-30 Completed Univer sity of Vaccination 00:00:00 [facility] SARS-CoV-2 2020-12-30 Completed Univer sity of Vaccination 00:00:00 Ashley Lyles juan manuel [facility] Vital Signs Vital Name Observation Time Observation Value Comments Source Systolic blood 2023-05-15 15:27:00 160 mm[Hg] [facility] pressure Diastolic blood 2023-05-15 15:27:00 104 mm[Hg] [facility]o dist Hospital pressure Heart rate 2023-05-15 15:27:00 73 /[facility] Body height 2023-05-15 15:27:00 [facility] temperature 2023-04-07 16:23:00 36.11 Deena [facility] Respiratory rate 2023-04-07 16:23:00 16 /min [facility] Oxygen saturation in 2023-04-07 16:23:00 95 /min [facility] Arterial blood by Pulse oximetry Body weight 2023-03-24 12:59:00 86.592 kg [facility] BMI 2023-03-24 12:59:00 29.90 kg/m2 [facility] Systolic blood 2022-06-28 13:07:20 146 mm[Hg] Univer sity of pressure [place] [facility] Diastolic blood 2022-06-28 13:07:20 80 mm[Hg] Unive rsity of [facility] MD [facility] Heart rate 2022-06-28 13:07:20 60 /min [facility] Body temperature 2022-06-28 13:07:20 36.72 Deena [facility] Respiratory rate 2022-06-28 13:07:20 18 /min [facility] Body weight 2022-06-28 13:07:20 90.1 kg [facility] BMI 2022-06-28 13:07:20 31.92 kg/m2 [facility] MD [facility] Procedures Procedure Date / Time Performing Clinician Source Performed INVITAE GENETIC TESTING 2023-04-13 00:00:00 Leslie Whitfield [facility] SURGICAL PATHOLOGY 2023-04-07 15:12:00 Leslie Whitfield [facility] REQUEST BREAST SPECIMEN 2023-04-07 14:54:43 Leslie Whitfield ospireynaldo [place] AN ELECTIVE 2023-04-07 14:00:00 Yuniel Ruiz ospital SUPRAGLOTTIC AIRWAY MASTECTOMY, PARTIAL 2023-04-07 13:51:00 [facility], LYMPH NODE, 2023-04-07 13:51:00 Leslie Whitfield [facility] SENTINEL POC GLUCOSE 2023-04-07 13:01:00 O'Trinidad, Leslie [facility] HEMOGLOBIN A1C 2023-03-24 12:56:00 Ottoniel Laney [facility] ESTIMATED GFR 2023-03-24 12:56:00 [facility] CBC WITH PLATELET AND 2023-03-24 12:56:00 Leslie Whitfield [facility] DIFFERENTIAL COMPREHENSIVE METABOLIC 2023-03-24 12:56:00 O'Leslie Trinidad [facility] PANEL EMPOWER BREAST STAT 2023-03-14 16:07:00 O'TrinidadLeslie camejo [facility] (STAT,81) SURGICAL PATHOLOGY 2023-03-13 00:00:00 Provider, Not In [facility] REQUEST System MAMMO EXTERNAL STUDY 2023-02-20 14:15:00 Mandeep'Leslie Trinidad [facility] BREAST EXTERNAL STUDY 2023-02-20 14:15:00 O'Leslie Trinidad [facility] CYTOLOGY NON-CABLE CUTTER AND SWAGER 2022-06-28 13:52:00 Jeff Skinner [facility] INTERPRETATION MD [facility] CYTOLOGY HPV 16/18 2022-06-28 13:52:00 Jeff Skinner [facility] GENOTYPING AND HIGH RISK MD Lyles [facility] Plan of Care Planned Activity Planned Date Details Comments Source Future Scheduled 2023-06-24 Screening for [facility] Test 23:08:34 malignant neoplasm of colon (procedure) [code = 426080779] Future Scheduled 2023-06-24 Screening for [facility] Test 23:08:34 malignant neoplasm of colon (procedure) [code = 306073270] Future Scheduled 2023-06-24 Screening for [facility] Test 23:08:34 malignant neoplasm of colon (procedure) [code = 566872429] Future Scheduled 2023-06-24 65+ PNEUMOCOCCAL [facility] Test 23:08:34 VACCINE (1 - PCV) [code = 65+ PNEUMOCOCCAL VACCINE (1 - PCV)] Future Scheduled 2023-06-24 Hepatitis C screening [facility] Test 23:08:34 (procedure) [code = 059775604] Future Scheduled 2023-06-24 Screening for [facility] Test 23:08:34 malignant neoplasm of colon (procedure) [code = 011403355] Future Scheduled 2023-06-24 Screening for [facility] Test 23:08:34 malignant neoplasm of colon (procedure) [code = 291712854] Future Scheduled 2023-06-24 SHINGLES VACCINES (1 Met [facility] Test 23:08:34 of 2) [code = SHINGLES VACCINES (1 of 2)] Future Scheduled 2023-06-24 COVID-19 VACCINE ([facility] - [facility] Test 23:08:34 Moderna series) [code = COVID-19 VACCINE (3 - Moderna series)] Future Scheduled 2023-06-24 INFLUENZA VACCINE Method [facility] Test 23:08:34 (#1) [code = INFLUENZA VACCINE (#1)] Future Scheduled 2023-06-24 BREAST CANCER [facility] Test 23:08:34 SCREENING [code = BREAST CANCER SCREENING] Future Scheduled 2023-06-21 COVID-19 Vaccination [facility] [place] Test 16:03:02 (3 - Moderna series) MD Rafal diallo Cancer [code = COVID-19 Center Vaccination (3 - Moderna series)] Future Scheduled 2022-10-03 COVID-19 Vaccination [facility] [place] Test 08:57:21 (3 - Booster for MD [facility] Moderna series) [code Center = COVID-19 Vaccination (3 - Booster for Moderna series)] Encounters Start End Encounter Admission Attending Care Care Encounter Source Date/Time Date/Time Type Type Clinicians Facility Department ID 2023-01-31 Inpatient KATHLEEN Marissafabianojohanne [facility] [id number] [place] 12:00:00 Julienne -[id number] [facility] 2022-12-15 Outpatient ELCAMPO ELCAMPO [id number] El 08:36:28 [id number] [facility] 2020-04-27 Outpatient SYSTEM, [facility] TRINA [id number] 10:43:33 PROVIDER Raúl gan 2023-06-07 2023-06-07 Outpatient KATHLEEN FADUMO, [facility] [id number] [place] 07:59:00 07:59:00 SUSAN [id number] [facility] 2023-05-15 2023-05-15 Office ODottie, 1.2.840.1 [id number] Methodi 10:00:00 11:26:40 Visit Leslie [id number] 3.430.2.7 Hospit a .3.986818 l .8 2023-05-15 2023-05-15 [facility] [id number] [place] 00:00:00 00:00:00 LESLIE [address] 2023-05-08 2023-05-08 [facility], 1.2.840.1 [id number] Methodi 12:10:56 23:59:00 Encounter Leslie [id number] 557 s t 3.430.2.7 Hospit a .3.511931 l .8 2023-05-08 2023-05-08 [facility] [id number] [place] 00:00:00 00:00:00 LESLIE [address] 2023-05-02 2023-05-02 Telephone Eloy, 1.2.840.1 [id number] Methodi 00:00:00 00:00:[id number] 3.430.2.7 Hospit a .3.173292 l .8 2023-04-28 2023-04-28 [facility], 1.2.840.1 [id number] Methodi 09:20:00 10:03:29 Visit Leslie [id number] 3.430.2.7 Hospit a .3.113151 l .8 2023-04-28 2023-04-28 [facility] [id number] [place] 00:00:00 00:00:[address] 2023-04-13 2023-04-13 [facility], 1.2.840.1 [id number] Methodi 00:00:00 00:00:00 Only Leslie 57529.1.[address] 3.430.2.7 Hospit a .3.357189 l .8 2023-04-07 2023-04-07 [facility], 1.2.840.1 [id number] Methodi 06:55:00 12:16:00 Encounter Leslie 35212.1.1 936 s t 3.430.2.7 Hospit a .3.304340 l .8 2023-04-07 2023-04-07 Surgery MandeepVivi, 1.2.840.1 [id number] Methodi 09:00:00 11:00:[address] 3.430.2.7 Hospit a .3.763788 l .8 2023-04-07 2023-04-07 Anesthesia Hany Sánchez 1.2.840.1 [id number] Methodi 08:46:00 10:45:00 Event Gianluca Alcazarelisse 08344.1.[address] 3.430.2.7 Hospit a .3.559598 l .8 2023-04-07 2023-04-07 Outpatient ROSEANN, [facility] [id number] [place] 00:00:00 00:00:[address] 2023-03-24 2023-03-24 Pre-Admiss Roseann, 1.2.840.1 [id number] Methodi 07:30:00 08:30:00 ion Leslie 32964.1.[address] Testing 3.430.2.7 Hospit a .3.947264 l .8 2023-03-24 2023-03-24 Telephone Gigi, 1.2.840.1 [id number] Methodi 00:00:00 00:00:[address] 3.430.2.7 Hospit a .3.477628 l .8 2023-03-24 2023-03-24 Travel 1.2.840.1 1.2.296.330 [id number] Methodi 00:00:00 00:00:[address] 3.430.2.7 0.2.7.3.698 Ho spita .3.006624 084.8 l .8 2023-03-24 2023-03-24 Outpatient [facility], [facility] [id number] [place] 00:00:00 00:00:[address] 2023-03-17 2023-03-17 Travel 1.2.840.1 1.2.745.966 [id number] Methodi 00:00:00 00:00:[address] 3.430.2.7 0.2.7.3.698 [facility] .3.101944 084.8 l .8 2023-03-15 2023-03-15 [facility], 1.2.840.1 [id number] Methodi 10:50:10 23:59:00 Encounter Leslie 76200.1.1 576 s t 3.430.2.7 Hospit a .3.775250 l .8 2023-03-15 2023-03-15 [facility], 1.2.840.1 [id number] Methodi 10:49:43 10:49:43 Encounter Leslie 16628.1.1 459 s t 3.430.2.7 Hospit a .3.740188 l .8 2023-03-15 2023-03-15 [facility], 1.2.840.1 [id number] Methodi 10:49:20 10:49:20 Encounter Leslie [id number] 383 s t 3.430.2.7 Hospit a .3.028513 l .8 2023-03-15 2023-03-15 [facility], 1.2.840.1 [id number] Methodi 10:48:57 10:48:57 Encounter Leslie 06522.1.1 322 s t 3.430.2.7 Hospit a .3.353428 l .8 2023-03-15 2023-03-15 [facility], 2.840.1 [id number] Methodi 10:48:34 10:48:34 Encounter Leslie 64065.1.1 239 s t 3.430.2.7 Hospit a .3.819028 l .8 2023-03-15 2023-03-15 Outpatient O'TRINIDAD, [facility] [id number] [place] 00:00:00 00:00:00 LESLIE [address] 2023-03-15 2023-03-15 Outpatient O'TRINIDAD, [facility] [id number] [place] [address] 00:00:00 00:00:00 LESLIE [address] 2023-03-15 2023-03-15 Outpatient O'TRINID[place], [facility] [id number] [address] [place] [address] 00:00:00 00:00:00 LESLIE [address] 2023-03-15 2023-03-15 Outpatient O'TRINIDAD, [facility] [id number] [address] [place] [address] 00:00:00 00:00:00 LESLIE 239 [address] 2023-03-15 2023-03-15 Outpatient O'TRINIDAD, [facility] [id number] [address] [place] [address] 00:00:00 00:00:00 LESLIE [address] 2023-03-14 2023-03-14 Hospital [place], 1.2.840.1 [id number] Methodi 11:20:25 23:59:00 Encounter Leslie 11574.1.1 403 s t 3.430.2.7 Hospit a .3.295965 l .8 2023-03-14 2023-03-14 Office [place], 1.2.840.1 [id number] Methodi 10:00:00 12:04:28 Visit Leslie [address]9911.1.[address] 3.430.2.7 Hospit a .3.276383 l .8 2023-03-14 2023-03-14 Office [facility], 1.2.840.1 [id number] Methodi 09:30:00 10:00:14 Visit Price 50198.1.1 [id number] [facility] 3.430.2.7 Hospit a .3.592918 l .8 2023-03-14 2023-03-14 Travel 1.2.840.1 1.2.376.553 [id number] Methodi 00:00:00 00:00:[address] 3.430.2.7 0.2.7.3.698 spita .3.120650 084.8 l .8 2023-03-14 2023-03-14 Outpatient HILARIA, [facility] [id number] [place] 00:00:00 00:00:00 PRICE 888 Method i 2023-03-14 2023-03-14 Outpatient ROSEANN, [facility] [id number] [place] 00:00:00 00:00:00 LESLIE 901 Metho di 2023-03-14 2023-03-14 Outpatient ROSEANN, [facility] [id number] [place] 00:00:00 00:00:00 LESLIE 403 Metho di 2023-03-13 2023-03-13 Orders Provider, 1.2.840.1 [id number] Methodi 00:00:00 00:00:00 Only Not In [address]117.1.[address] System 3.430.2.7 Hospit a .3.866518 l .8 2023-02-20 2023-02-20 Outpatient KATHLEEN ORR [facility] [id number] [place] 08:38:00 08:38:00 JULIENNE -[id number] [facility] 2023-02-14 2023-02-14 Outpatient KATHLEEN ORR [facility] [id number] [place] 11:16:00 11:16:00 JULIENNE -[id number] [facility] 2023-01-13 2023-01-13 Outpatient KATHLEEN ORR [facility] [id number] [place] 08:38:00 08:38:00 JULIENNE -[id number] [facility] 2022-12-15 2022-12-15 Outpatient Ambrocio PEREZJOHANNEJULIENNE [facility] CIT Y [id number] 08:37:00 08:37:00 [id number] LAB [facility] 2022-08-03 2022-08-03 Outpatient KATHLEEN HUNG [facility] [id number] [place] 05:14:00 05:14:00 RINCON -[id number] [facility] 2022-06-28 2022-06-28 Procedure Ghada, 1.2.840.1 [id number] Univers 08:30:00 09:00:00 visit Jeff 56949.1.1 ity of 3.412.2.7 [place] .3.348806 MD Nguyen8 [facility] 2022-06-28 2022-06-28 Procedure EL Ghada, 1.2.840.1 [id number] Univers 08:30:00 09:00:00 visit Jeff 56373.1.1 ity of 3.412.2.7 [place] .3.801632 MD Nguyen8 [facility] 2022-06-28 2022-06-28 Office Ghada, 1.2.840.1 [id number] Univers 08:00:00 08:15:00 Visit Jeff 56083.1.1 ity of 3.412.2.7 [place] .3.407172 MD Nguyen8 [facility] 2022-06-28 2022-06-28 Office KATHLEEN Skinner, 1.2.840.1 [id number] Univers 08:00:00 08:15:00 Visit Jeff 80087.1.1 ity of 3.412.2.7 [place] .3.194683 MD Nguyen8 [facility] 2022-06-28 2022-06-28 Travel 1.2.840.1 1.2.676.369 [id number] Univers 00:00:00 00:00:00 28312.1.1 350.1.13.41 ity of 3.412.2.7 [place]7.3.698 [place] .3.59[place]2 084.8 MD Espitia [facility] 2022-06-28 2022-06-28 Travel 1.2.840.1 1.2.507.745 6213 [id number] Univers 00:00:00 00:00:00 04827.1.1 350.1.13.41 ity of 3.412.2.[place]3.698 [place] .3.019[place] 084.8 .8 [facility] 2022-06-14 2022-06-14 Telephone Luico, 1.2.840.1 [id number] Univers 00:00:00 00:00:00 Christina B 91315.1.1 ity of 3.412.2.7 [place] .3.546298 .8 [facility] 2022-05-10 2022-05-10 Telephone Luico, 1.2.840.1 [id number] Univers 00:00:00 00:00:00 Christina B 64134.1.1 ity of 3.412.2.7 [place] .3.595765 MD Nguyen8 [facility] 2022-05-03 2022-05-03 Outpatient STEFFEN_ OFE [facility] [id number] [place] 05:36:00 05:36:00 ZAK Lujan [facility] 2022-01-20 2022-01-20 Outpatient N JULIENNE ORR [facility] CIT Y [id number] 10:48:00 10:48:00 [id number] LAB [facility] 2021-12-07 2021-12-07 Outpatient KATHLEEN HUNG [facility] [id number] [place] 07:49:00 07:49:00 SUSAN [id number] [facility] 2021-05-18 2021-05-18 Outpatient KATHLEEN SKINNER MDA MDA [id number] 07:35:32 08:52:46 JEFF gan 2021-05-18 2021-05-18 Outpatient KATHLEEN SKINNER MDA MDA [id number] 07:32:33 08:52:41 JEFF gan 2020-12-02 2020-12-02 Outpatient KATHLEEN HUNG [facility] [id number] [place] 09:53:00 09:53:00 SUSAN [id number] [facility] 2020-10-28 2020-10-28 Outpatient KATHLEEN ORR, [facility] [id number] [place] 08:23:00 08:23:00 JULIENNE -[id number] [facility] 2020-05-21 2020-05-21 Outpatient KATHLEEN SKINNER, MDA MDA [id number] 07:33:56 08:57:36 JEFF gan 2020-05-21 2020-05-21 Outpatient KATHLEEN SKINNER, MDA MDA [id number] 07:32:56 08:57:30 JEFF gan 2020-05-05 2020-05-05 Outpatient KATHLEEN SKINNER, MDA MDA [id number] 00:00:00 00:00:00 JEFF gan 2020-05-05 2020-05-05 Outpatient KATHLEEN SKINNER, MDA MDA [id number] 00:00:00 00:00:00 JEFF gan 2020-04-30 2020-04-30 Outpatient KATHLEEN SESAY, MDA MDA [id number] 07:24:54 07:44:51 PETR gan 2020-04-30 2020-04-30 Outpatient KATHLEEN SKINNER, MDA MDA [id number] 00:00:00 00:00:00 JEFF gan 2020-04-30 2020-04-30 Outpatient KATHLEEN SKINNER, MDA MDA [id number] 00:00:00 00:00:00 JEFF gan 2019-12-20 2019-12-20 Outpatient KATHLEEN ORR, [facility] [id number] [place] 07:53:00 07:53:00 JULIENNE -[id number] [facility] 2019-05-21 2019-05-21 Outpatient KATHLEEN ORR, [facility] [id number] [place] 07:06:00 07:06:00 JULIENNE -[id number] [facility] 2019-05-07 2019-05-07 Outpatient KATHLEEN SKINNER, MDA MDA [id number] 07:54:23 07:54:23 JEFF gan 2018-05-21 2018-05-21 Outpatient KATHLEEN ORR, [facility] [id number] [place] 08:29:00 08:29:00 JULIENNE [id number] [facility] 2018-04-30 2018-04-30 Outpatient KATHLEEN ORR [facility] [id number] [place] 09:12:00 09:12:00 JULIENNE -[id number] [facility] 2017-11-13 2017-11-13 Outpatient KATHLEEN ORR [facility] [id number] [place] 07:50:00 07:50:00 JULIENNE [id number] [facility] 2017-04-24 2017-04-24 Outpatient KATHLEEN ORR [facility] [id number] [place] 08:00:00 08:00:00 JULIENNE [id number] [facility] 2017-01-03 2017-01-03 Outpatient KATHLEEN WALKER [facility] [id number] [place] 10:56:00 10:56:00 KAILA -[id number] [facility] 2016-06-29 2016-06-29 Outpatient KATHLEEN ORR [facility] [id number] [place] 08:01:00 08:01:00 JULIENNE [id number] [facility] 2015-10-01 2015-10-01 Outpatient KATHLEEN ORR [facility] [id number] [place] 09:25:00 09:25:00 JULIENNE [id number] [facility] 2011-12-26 2011-12-26 Outpatient KATHLEEN ORR [facility] [id number] [place] 09:01:00 09:01:00 JULIENNE [id number] [facility] 2010-02-26 2010-02-26 Outpatient KATHLEEN HUNG [facility] [id number] [place] 09:30:00 09:30:00 SUSAN [id number] [facility] 2008-06-05 2008-06-05 Outpatient DREAD ALVES, [facility] [id number] [place] 16:52:00 16:52:00 TORIBIO [id number] [facility] Results Test Description Test Time Test Comments Results Result Comments Source Surgical pathology request 2023-04-12 16:12:57 Test Item Value Reference Range Interpretation Comme nts Case number (test code = 3519298) [id number] Surgical pathology report (test code = See link below for PDF Lab R eport 4804) Result status (test code = 8122598) This is Supplemental Report for [id number] [facility] [id number] 13:02:00 Test Item Value Reference Range Interpretation Comments POC glucose (test code = 111 mg/dL 65-99 H Ope rator Name: Chinyere [id number]) SeharDevice ID: [id number] able: RN Notified Lab Interpretation (test Abnormal code = 41433-2) [facility] ([facility],81)2023-03-23 14:16:53 Test Item Value Reference Range Interpretation Comments Report summary (test OTHER Test No t PerformedTest code = 8769) was not perform ed. Refer to specific det ails below. Footnotes (test code See Notes CLIA: I D #[id number] = [id number]) performed by [employer]. [address] [place] [address] Jesus Alberto Fried, Ph.D. , [facility], Laboratory Dire ctor [facility] Non-Press Tender Star [employer] Hujggdzqvwbgff0361-56-40 19:47:25 Test Item Value Reference Range Interpretation Comments Gross Description (test x0jdiIJjJUStyXINYWz code = 3150211943) wMVxhbnNpXHNwbHRwZ3 AaikanIKvwYX8hFO3pr DpqdMVaiFNeGK3ENYXb ZmYxXHBhcGVydzEyMjQ bHIKteKFyvLI2DMCnMQ 1hcmdsMTgwMFxtYXJnc yB7DIThoIVlL2GxPFGu HT2qxlmeLSO3VDxnqD1 wcaSEMuhqLu9jiUTtiP tcZjFcZmNoYXJzZXQwX RUkfKhdEXQpDIk4vA0D YsmpDUB7AKXHJyuaLUB kEN3Tz1msXXEufTQrVQ M2MBivmPLdAYLvUHZxX Mz7XTMwECrivASgJD0c iKdyQwrhtNmrc1BnfJV cXGlkIDUxMDAyIFxcZG QtEM0DXtVvBKMgSuy0S OWwIUi2ROs2GG1RCgKa ODGiSPP3AfQ7RXUkRKp 8DAwpWW2MPPXbIdO4Oj l4PHMgSYIgVdFcLDn6M DIgXFxmIEFyaWFsIFxc ZnMgMTAgXFxmYiBcXGZ qTLxaygV7ZTUbYAdePX JcZnMyMCAgXHBhciANC lxwbGFpblxlcGljTmVz dERvYzEgDQpcbHRycGF yXGxpbjBccmluMCANCl xsdHJjaFxmczIyIDEgV GhpblByZXAgdmlhbCBy VXKwxPOnUT7LWVLpmSX PLNC0BE6mWBv8EJpiEF DiL5MyW5PuqmKxoPVyX HWbyzGrt4dfFQG1GXTz bXVsdDBcZnMxNlxwYXJ 1BCYdZIimXH8PTZIeJM V8HDrjqV03iUCdGY8IL HBsYWluXGZzMTZcdjB7 CPNfwCIkRYL4IR1zoPg tyHOfoykndwG9OJ7NyT == 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) Diagnosis (test code = 34) n7hrhNVdEZPwqTY1SVY kGZGet8nae3HspEKdlX BkTWcudISufyPdvc28c TW0tM43FS9tOFBnJsZ4 VSCpawW8Qhg2URMtHHG ctEUwQ708r6cnb4uspb UgsVJ5KBZtUSJjO9KhB P6eFQYxsPSoV39taKZk PNZ4FPNkUVVyqWQlDHS oSBZ3TFXntDLxE1psXL WcGW4wrdvaADjlKWglR TTbaEO6PPZabKWmI6Rr QOMqAUjuGNNmowo9ElL pNx2gfCJegKfrPDrjO9 nqcM7oNgX1OVemV5rjl U7yYGe9ILmgDLWeoFT6 gtF6ZWRrgVAxE1JfrX1 tAEOsZL6onrh0l0nlAS O4UDgwYXFfPjR7wtA8N DBccGFyZFxwbGFpblxm czIwXGNmMSBBbmFsIGN jxrYrGBSic5DfCShhoK NlBPXxHfveLOWthUd8U jBcbGluNzIwXGNmMCBT YWTzy6CuX6AbxlemZq0 rNQL5JNp9KBCjl69sKB HeOBfbgPGzrvEui3DhX ZEey76vma0sUFYus76z w37jizPfUSMdGKNgycU vgSEhPPV3jFOaS3DyRX NnqLHkh3PhKPTitIwcU Y4sCDZjLJU2VAXsvW2j OITobAkgeOPcS2WiO6H mTOSERq6GQzzzmQYjpB == Retained/Biomarker Testing x8ffjBNxSFTarIY9XNK (test code = 9838) zFIXmp3ntp7BknAEjtI QxCShslYHycoCczh53f ZC5kD94LN5eAEPqOjO4 YIGcqgF6Irl7ZBIhQCW nxKWjD748h8gtz3wcqq WwjRV0tUwjMXZeldypG mG1YGdfASWjdxfeUYo9 LXrnTAFhnED3JILxtEB oU8ZcSVJhNO7uxht1JU R6NHbkUITuCbG9KTGjs OCjHUBshEaaHJbgy729 JFC1UuAkOROfnsRwrDs axQ8qEwOhOULTKxjsVT BTXHBhcn0= Informational Points (test k5ywbVZcAGKgmUDjOvB code = 9836) wGLMlSNPgw8kqKNNtiR FuZzEwMzNcZnRuYmpcd EYwHBWsAqTcf9xfc425 eZAnv6czQGTnFpE3fXI xIBYsrPIhN785XGAzVL uwy9ggd2LyGYWveDRhc 0E9NDAHDKbwICZUCXx9 n3nqStNnImQ2fHNlKQa yZ6kxsaMmyYZjJRJoOH v8vZ22DPFocU3psOBfH VaimbSkDrE8NPuvXBRt ToS3FLHpeVKmHPWkI1m yZWQwXGdyZWVuMFxibH MgDCH3nWeqb2W0tZBmi GVldHtcZjBcZnMyMiBO d7MfVUv7fUgfR1ZnZDN aAwI3xUGsZIEtIHmnCY GsENClomN5sL51WQxrz pK3dLNev0Tmx96wi151 vI5lkUHgWDH9PRPeCRV xlMImTCHkSYX0HBPgwS TnJ6cySTGlRU9qwzocV NcgINpsYTEmmUC7LCTh bZOzE8ApLFKcGCtfFXO mcbo9QeMlPz7ejXKioO ypORxyx0olm4xaxDQjW at2KXTvQtHlFrxuAWlc a3Tpw9wmXTFhwg7uVPF 3kSSywYvkv1S6pXPfXT TxdOHkmpHbRDFgXoP6F TkkFT5zwr15QTVbAUX1 pd6pkAPeuLgpgiAbyEF gRUnuQ3YoQAHmu428EA VtE2DlNWCxe9P3jsAqD wEbUAZzvKY4wwK4XQQi CIt1rVPskkP2tlBzxUV tG1vkeG7vRCWgEZ8qcm fzq9bzHTpiUFuvJNDxb PP1hfT1XUDujSKcS5Xs dF7aPOZcYQxoJYLxmpf 8OtRlQv1erXJzsOxeXA xzYmtwYWdlXHBnbmNvb nRccGduZGVjXHBsYWlu XHBsYWluXGYwXGZzMjR xgJzkcCdafX5yRdYjEv BeRRujSC5fFILcV2ejc QJhITYiDKCtA5xzHhBr iP9jfZmwFPvdexV1YVe uW60uTUU8RQN9kiAdMA OgqfCsBFSvNPYpDV0zc URnEJLoVZNkNV2jMPG3 ZWxvcGVkIGFuZCBwZXJ kb4VaST5dUCNctUEcQE V2TRHhr6WlM3DcIRY2S AVxeV5eNTCckEDSFAWG RCBBbmRlcnNvbiBQYXR qy2afZ4fdXN8nEQqrOa 9yYXRvcnkgTWVkaWNpb uAlNIEqJSUvBCDyf1Ne VXbmxdBeox68WIIvKP5 az5UwV8zzxYDiuKn3AQ MpOEAcXHTww2EoAPOzi u77SZUyCphdbLwjTIOi Fv4yHz1aYMOrstTgYXI 2AfSAPR5jknlrqGFmpW lcpr1iBHJpVHguCPNlO GZzMjJcbGFuZzEwMzNc aGljaFxmMlxkYmNoXGY vNPwkT4kvFaNrUsHiTl xwYXJ9 Lab Interpretation (test Abnormal code = 90394-1) [facility] Interpretation 2022-07-04 19:47:25 Test Item Value Reference Range Interpretation Comments Gross Description (test t8hklONdKURqdAHQDMl code = 2558877260) wMVxhbnNpXHNwbHRwZ3 BhympiIBluAG0nWU7zt CxemWHfaARdPT5LRPEf ZmYxXHBhcGVydzEyMjQ oSRBonQOluUF4BQEkJE 1hcmdsMTgwMFxtYXJnc wE6ERZkzUVeS6QxWIPe YE1vbqsrXYQ7PUtdwL3 qaaKQJoaeMm7dcTQnxA tcZjFcZmNoYXJzZXQwX PVwbUbjUQFqHSi9hZ6A AmpuKRT4FSVKUjnvBWY rEU4Xt6spXOXlgBFvTN K8UMwfjWHiCGMhSWIuN Oj3UWRqAYinwGAvLU2q mGypOumjpXzga6ViqAO cXGlkIDUxMDAyIFxcZG TbPE7UDvIrLJXfWyd0R LEbHBd8EFk9NW6OIcHs EHHaPVG1GpG8TGRvQOf 3WHcgAA9ZOTDpXpH5Kc t5IDQeINUiFfBxWQi2X DIgXFxmIEFyaWFsIFxc ZnMgMTAgXFxmYiBcXGZ cIRbbxoS9DQLgVWnmYB JcZnMyMCAgXHBhciANC lxwbGFpblxlcGljTmVz dERvYzEgDQpcbHRycGF yXGxpbjBccmluMCANCl xsdHJjaFxmczIyIDEgV GhpblByZXAgdmlhbCBy LYYmuDHgYF4RKINupYO ROTB4JY1hIXg0JUkzDF YaQ8LtU9OrppEmhFMfR LTunjUje8kuLLQ2VYIq bXVsdDBcZnMxNlxwYXJ 5BCCmJHyuLZ1VQWQcVF D5QNwukS35pZDpTG2UY HBsYWluXGZzMTZcdjB7 PBOetAZqCOR5GZ3rmMo epVVurikugqF1XT8UoB == 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) Diagnosis (test code = 34) t3sjlSSjORAgoAS2UXF lNPOmr5gxm1JvqLUavD AqTJhdjDDogaXfze55s RN6cI44LC9zVACkVhD1 VULdhpI3Qpc8EUCkYKV oaNFoQ022g9eie6nmma YhvWQ1QOWnXFPnQ2LpX L0pNOByoCOhZ28fpLIm XUB4VXFdHOYojDGsJET gFRQ7YDSenGAjP1baJV WgLC2behjfTToyASviQ EYrfCF9BYWrjFEuL7Da GKEuMCiiDIFpvid7VcH lOz1qtDIscXqlARbkE0 mrdN2fMuN0ZBezP8ceh X0jXGs7BJuqYUNjxSU0 wwD8DOWhyCYtW8JjgA7 fHURaQX5ovku3k9mvGL T7OEyyBTIbJaS1opD3K DBccGFyZFxwbGFpblxm czIwXGNmMSBBbmFsIGN rbpTgQDBdt3RvEVztbI AsCPZvIxsdKNTtoXd2P jBcbGluNzIwXGNmMCBT UVTuw6HdY5AmxahzWj5 dZHR3RJn9BVUwr38pDV BhGVwttYIhpxVkc3FuM ZLqt54jbp3yFMPjx62e n95obsHsQBDoSPKrrfW piUXhQUA1uEHnM3UuVD CxvONoh5JvQXVxdKzoV B2kFBUxUKK5EVKerV7y QRVlvHaqyXUkE4ZlU4O wZYTJMv4PUdjrpHXokV == Retained/Biomarker Testing s9qimTDlSVXhgCF4SRI (test code = 9838) qYBErm9udk9UdvNPqbW QqEFwydWWgbkUuvx43n FB5nY00WP8iWSLmXnA9 HMQlhsG0Ltp1GZBoFHG hbSNnR134f8vhr5uuzt WvzOO2rLybCICiuneaS qL2ERypRBJatvthSUw7 GFohPJMlzGN2TKTdnMI dT9PtZHZwBT4xjed3TC W4AKyyIFZlYwT7QEMsw UOuKFBuaEuxKKgwl993 YFK0DiVmDHSltgWgdBx iaL8gDbIzMPXIYrbpFM BTXHBhcn0= Informational Points (test q4lznEEbJPNcuZViTxA code = 9836) pMXHeZEXte9nbNKWagV FuZzEwMzNcZnRuYmpcd DLyCIYtTpBdg4kou756 vDZef2ihTUZiAjD8bYB wGVYpiMWhI545TQSiEW owa5jsq5NgCWRvmNGdd 5Y1BUANWAmxWMUYWVi2 o0ljEwDhKmF4sRMpWIx oF4gbwpUagHKnDJPyRG f3lU28HARglF6wmWRuO DyhjhCkZsB0RDdoGRQq QeQ0MRMlhGNpALGtG6e yZWQwXGdyZWVuMFxibH JtAII3jHrmr0X6gRUme GVldHtcZjBcZnMyMiBO b3YbIIn1pOutJ7KuVEK jNiI9kVZjNUJpTKirCM KsPFLcdcN1cW34VHiwm nK6qXYqk6Bap60jt015 nQ6ugJZkEZL8SQAdADT ebJDoBRFgNXJ8SMKvyZ KaR1ovGBBiQG4ujwqiY KrlTOhjUPTsxFQ1PHDi kURbS9LyDBEgYFevGQF jjuv6FvDnXd7ahWVkbF slOWahk2pix0ginBKkS tz5VXZbVmAtQoqmFKto g8Xyu7qaKHXwqm1dUYO 8wXLybVhmm2Z0dDGiYD PgcWKaawZuHMCfKzC4Q KdxNQ5eck44WFDjNMF1 qo3kjTZeaXdijyLkxDB iJVawP5WpSHJtj591BE DlK8RoLCKmv9N1gzRfW sQwHCRjeFG3dfY9ZTGk NLh6gOGxtwH4dlPonGT mD8ndfR9fGALrCJ3xww erl3alXMddZAyxYWKny UB0ayO4TRHezRPqM9Vv sY1zFYHyOYprLGMytus 4OuQcFc7zuXJhuOdrND xzYmtwYWdlXHBnbmNvb nRccGduZGVjXHBsYWlu XHBsYWluXGYwXGZzMjR clDeiuGiitQ8rKvLiRt OcHQcdNG7rEPEnE7bty IVrTYHoQMAqX9kzMiZi fX3ppVqoJMvjizU5WKm mK24rJXL7BVV0atHcUE FrlxEuOGSlPIGnNX0zf USsYZEvCIJeLS8fXZL3 ZWxvcGVkIGFuZCBwZXJ qi2JwEQ4cLYYoiFSuGP A7SPCzu6GkR5HcNRA2W OIxvW9cJSJdxBVDJPTB RCBBbmRlcnNvbiBQYXR lq3mvT3hmDU7nMBibMu 9yYXRvcnkgTWVkaWNpb lZuAFHdWREeASQsk9Nh VOpnetZhfm34LFWiZV6 yx4SjE1jpvHXrtOq2XN PaYZSyOEIrs4WlHWWvx s88FEAxJegouRfxXDFo Ka1sKd7vUHMgtvPlZYX 6DfEVQG5vyvlczABetY qrco9gOVYaXMyyJPOyA GZzMjJcbGFuZzEwMzNc aGljaFxmMlxkYmNoXGY pGUekM0paOaVwGhTkVy xwYXJ9 Lab Interpretation (test Abnormal code = 27339-0) [facility] HPV 16/18 Genotyping and High Risk [id number] 23:17:12 Test Item Value Reference Range Interpretation Comments HPV Type 16 (test code Positive Negative, A = 9853) Indeterminate, Invalid HPV Type 18 (test code Negative Negative, = 9854) Indeterminate, Invalid HPV High Risk Negative Negative, Non-16/18 (test code = Indeterminate, 9855) Invalid Informational Points The rosario HPV Test (test code = 9852) ([employer], [place], [place]) is a qualitative in vitro diagnostic test for the detection of Human Papillomavirus in cervical specimens collected in [employer]. The test utilizes amplification of target DNA [...] test were validated and determined by the [facility] cytology laboratory. These validation analyses have confirmed the accurate performance of the assay of the intake nurse's stated limit of detection for the target of the test in various specimen types. The [facility] cytology laboratory is authorized under Clinical Laboratory Improvement Amendments (CLIA) to perform high-complexity testing. The [facility] Department of Pathology is accredited by the [employer] [place] [employer] ([employer]). Lab Interpretation Abnormal (test code = 01684-8) [facility] [place] HPV 16/18 Genotyping and High Risk [id number] 23:17:12 Test Item Value Reference Range Interpretation Comments HPV Type 16 (test code Positive Negative, A = 9853) Indeterminate, Invalid HPV Type 18 (test code Negative Negative, = 9854) Indeterminate, Invalid HPV High Risk Negative Negative, Non-16/18 (test code = Indeterminate, 9855) Invalid Informational Points The rosraio HPV Test (test code = 9852) ([facility], [place], [place]) is a qualitative in vitro diagnostic test for the detection of Human Papillomavirus in cervical specimens collected in [employer]. The test utilizes amplification of target DNA [...] test were validated and determined by the [facility] cytology laboratory. These validation analyses have confirmed the accurate performance of the assay of the intake nurse's stated limit of detection for the target of the test in various specimen types. The [facility] cytology laboratory is authorized under Clinical Laboratory Improvement Amendments (CLIA) to perform high-complexity testing. The [facility] Department of Pathology is accredited by the [employer] [place] [employer] ([employer]). Lab Interpretation Abnormal (test code = 22798-6) [facility] [place], [place], LUMBAR, COMPLETE (MIN 4 VIEWS)2019-04-04 12:52:00Reason [...] with grade 2 anterolisthesis and moderate disc spacenarrowing despite having a disc prosthesis. No instability on flexion-extension views. Signed: Miguel Angel Ojeda MDReport Verified Date/Time: 04/04/2019 12:52:10 Reading Location: [facility] Reading Room [address] [place] [address]
[2023-06-25 09:39] LABS: Absolute Lymphocytes (CBC) 1.5 K/uL (0.7-4.9); Hematocrit 40.5 % (36.0-45.0); Lymphocytes % 19.9 % (15.3-44.8); MCV 92.4 fL (80-100); MPV 6.3 fL (7.6-11.3); Platelets 336 thou/uL (152-406); RBC Red Blood Cell Count 4.38 M/uL (3.86-4.86)
[2023-06-25 09:43] LABS: Protime INR 1.03
[2023-06-25 09:55] LABS: Albumin 3.1 g/dL (3.4-5.0); Bilirubin Total 0.4 mg/dL (0.2-1.0); Potassium 3.8 mEq/L (3.5-5.1); Protein, Total 6.3 g/dL (6.4-8.2)
--- NOTE | 2023-06-25 10:06 | RAD REPORT ---
EXAM DESCRIPTION: US - Extremity Nonvascular Limited - 06/25/2023 9:48 am CLINICAL HISTORY: evaluate abscess right breast COMPARISON: No comparisons FINDINGS: Large complex fluid collection in the upper outer quadrant of the right breast measuring 7 .5 x 4.9 cm. This has heterogeneous contents within the collection but is primarily fluid. IMPRESSION: Fluid collection in the right upper outer chest wall that could reflect a postoperative abscess, lymphocele, or subacute hematoma.
[2023-06-25] MEDS ORDERED: VANCOMYCIN 1 GM/VIAL ONE (10:28)
[2023-06-25] MEDS ORDERED: NA CHLORIDE 0.9% 250 ML ONE (10:28)
--- NOTE | 2023-06-25 10:29 | EDPHYS ---
Physician Documentation [facility] Name: Sierra Tejada Age: 73 yrs Sex: Female : 1950 Arrival Date: 06/25/2023 Time: 08:23 Bed 7 Private MD: ED Physician Lori Talbot HPI: 06/25 09:05 This 73 yrs old Female presents to ER via Ambulatory with complaints of Breast Problem, kb Fever. 09:05 the patient presents with a swollen area of the right breast. Description: kb erythematous, hot, swollen. Onset: The symptoms/episode began/occurred 2 month(s) ago. Possible cause(s): surgical procedure. Associated signs and symptoms: Pertinent positives: erythema, fever, swelling, Pertinent negatives: discharge, drainage, foreign body sensation, headache, nausea, shortness of breath, vomiting. Modifying factors: the symptoms are alleviated by nothing, the symptoms are aggravated by pressure, touching. Severity of symptoms: At their worst the symptoms were moderate, severe, in the emergency department the symptoms are unchanged. The patient has not experienced similar symptoms in the past. The patient has been recently seen by a physician:. Patient reports she had a tumor removed from right breast on April [address] [facility]. States the area has not healed completely since the surgery. Was seen by surgeon, Dr. Mortensen, for redness and swelling, was told it was a hematoma and it was drained in the office. Patient followed up with PCP Monday for redness and swelling to right breast and was prescribed Augmentin. States symptoms have been getting worse and it is becoming more painful. Patient does report subjective fever.. Historical: - Allergies: 08:32 atorvastatin; iw 08:32 Iodine; iw 08:32 Isosorbide Mononitrate; iw 08:32 Losartan; iw - Home Meds: 09:11 amlodipine 5 mg tab 1 tab once daily [Active]; aspirin 325 mg Oral TbEC 1 tab once hb daily [Active]; Coreg CR 80 mg Oral CM24 1 cap once daily [Active]; furosemide 20 mg Oral tab 1 tab Every other day [Active]; levothyroxine 125 mcg tab 1 tab once daily [Active]; loratadine 10 mg Oral tab 1 tab as needed [Active]; Premarin 1.25 mg Oral tab 1 tab WEEKLY [Active]; olmesartan 40 mg Oral once daily [Active]; propafenone 325 mg Oral cp12 1 cap daily [Active]; vitamin E 1,000 unit Oral cap 1000 unit daily [Active]; - PMHx: 08:32 CAD; Intestinal problems/pain; Myocardial infarction; Hypertension; iw - Immunization history:: Adult Immunizations up to date. - Social history:: Smoking status: Patient denies any tobacco usage or history of. ROS: 09:03 Cardiovascular: Negative for chest pain, palpitations, and edema. kb 09:03 Constitutional: Positive for fever. 09:03 Skin: Positive for abscess, cellulitis, erythema, swelling, of the right breast. 09:03 All other systems are negative. Exam: 09:03 Constitutional: This is a well developed, well nourished patient who is awake, alert, kb and in no acute distress. Head/Face: Normocephalic, atraumatic. ENT: Moist Mucous membranes Cardiovascular: Regular rate and rhythm with a normal S1 and S2. No gallops, murmurs, or rubs. No pulse deficits. Respiratory: Respirations even and unlabored. No increased work of breathing. Talking in full sentences MS/ Extremity: Pulses equal, no cyanosis. Neurovascular intact. Full, normal range of motion. Neuro: Awake and alert, GCS 15, oriented to person, place, time, and situation. Moves all extremities. Normal gait. 09:03 Skin: abscess, that is large, of the right breast, with fluctuance, that is marked, with surrounding cellulitis, that is severe. Vital Signs: 08:33 BP 133 / 75; Pulse 79; Resp 16; Temp 98(O); Pulse Ox 98% on R/A; Pain 8/10; iw 09:10 Weight 90.72 kg; Height 5 ft. 6 in. ; hb 09:47 BP 127 / 71; Pulse 70; Resp 15; Pulse Ox 98% on R/A; Pain 5/10; hb 10:40 BP 123 / 67; Pulse 69; Resp 16; Pulse Ox 99% on R/A; hb 11:45 BP 126 / 76; Pulse 71; Resp 15; Pulse Ox 99% on R/A; hb 09:10 Body Mass Index 32.28 (90.72 kg, 167.64 cm) hb 08:33 Pain Scale: Adult iw 09:47 Pain Scale: Adult hb MDM: 08:30 Patient medically screened. kb 09:08 Differential diagnosis: abscess, allergic reaction, cellulitis, insect bite. Data kb reviewed: vital signs, nurses notes. Consideration of Admission/Observation Escalation of care including admission/observation considered. Admission considered but patient refuses to stay in the hospital at this time. 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 Care significantly affected by the following chronic conditions: Hypertension, Cancer. ED course: On initial exam I informed patient that she needed to be transferred back to [facility] for this postop infection. Patient states she does not want to be transferred back to Dr. Mortensen, does not wish to see her again. Patient informed that she needs IV antibiotics and surgical drainage of abscess. Patient states she will not stay in the hospital at this time, she is a sole provider for her and it is too dangerous to leave him home alone. I discussed case with Dr. Talbot, who went in to evaluate patient as well. Dr. Talbot agrees with need for admission and IV antibiotics as well as surgical drainage. Does not recommend I\T\D in the emergency department. This was again explained to Mrs. Tejada. Patient still adamant that she cannot stay in the hospital today. Dr. Talbot and I discussed finding alternative care for patient's with patient so that she can get infection treated. Patient states she must go home today, but will work on making arrangements so that she can come back into the hospital at a later time. Mrs. Tejada educated on risk of life-threatening illness if it is not treated promptly. Verbal understanding of risks of leaving AMA received. Patient will stay for blood work and IV antibiotics prior to leaving.. ED course: Patient has decided to leave our facility AGAINST MEDICAL ADVICE. I have assessed the patient's ability to make an informed decision and it is my opinion at this time that the patient has the medical decision-making capacity to comprehend information regarding current medical condition and appreciates the impact of the disease or condition and the consequences of various options for treatment, including foregoing treatment. The patient possesses the ability to evaluate all treatment options, compare the risk and benefits of each option, communicate choice and is able to make rational choices. The patient understands and acknowledges that the decision to leave may result in undesirable consequences such as , permanent disability, and/or loss of current lifestyle. Even though leaving AMA a is not ideal, I have instructed the patient to follow any discharge instructions given, take any medications prescribed and resume care as soon as possible. Additionally, I have clearly stated that the patient is welcome to return at any time to continue care at our facility.. 10:13 Counseling: I had a detailed discussion with the patient and/or guardian regarding the kb historical points, exam findings, and any diagnostic results supporting the discharge/admit diagnosis, lab results, radiology results, the need for further work-up and treatment in the hospital. ED course: Discussed all diagnostic results with pt. Advised pt that I recommend admission for surgical drainage again. Pt still refusing admission. . 06/25 08:52 Order name: Blood Culture Adult (2) kb 06/25 08:52 Order name: CBC with Diff; Complete Time: 09:46 kb 06/25 08:52 Order name: CMP; Complete Time: 10:03 kb 06/25 08:52 Order name: Lactate w/ 2H reflex if indic.; Complete Time: 10:03 kb 06/25 08:52 Order name: Protime (+inr); Complete Time: 09:46 kb 06/25 08:52 Order name: Ptt, Activated; Complete Time: 09:46 kb 06/25 09:05 Order name: US Extrmty Nonvasular Limited; Complete Time: 10:09 kb 06/25 08:52 Order name: EKG; Complete Time: 08:53 kb 06/25 08:52 Order name: Accucheck; Complete Time: 09:09 kb 06/25 08:52 Order name: Cardiac monitoring; Complete Time: 09:09 kb 06/25 08:52 Order name: EKG - Nurse/Tech; Complete Time: 09:09 kb 06/25 08:52 Order name: IV Saline Lock - Large Bore; Complete Time: 09:31 kb 06/25 08:52 Order name: Labs collected and sent; Complete Time: 09:31 kb 06/25 08:52 Order name: O2 Per Protocol; Complete Time: 09:09 kb 06/25 08:52 Order name: O2 Sat Monitoring; Complete Time: 09:09 kb 06/25 08:52 Order name: Vital Signs; Complete Time: 09:10 kb Administered Medications: 09:46 Drug: Piperacillin-Tazobactam IVPB 3.375 grams Route: IVPB; Infused Over: 60 mins; hb Site: right forearm; 10:17 Follow up: Response: No adverse reaction; IV Status: Completed infusion; IV Intake: hb 100ml 10:18 Drug: vancoMYCIN IVPB 1 grams Route: IVPB; Infused Over: 2 hrs; Site: right forearm; hb Disposition Summary: 06/25/23 10:28 Discharge Ordered Location: Home kb Condition: Stable kb Diagnosis - Cutaneous abscess of chest wall - right breast kb - Cellulitis of chest wall - right breast kb Followup: kb - With: Emergency Department - When: As needed - Reason: Worsening of condition Followup: kb - With: Private Physician - When: 2 - 3 days - Reason: Recheck today's complaints, Continuance of care, Re-evaluation by your physician Discharge Instructions: - Discharge Summary Sheet kb - Skin Abscess, [id number] kb - Cellulitis, Adult, [id number] kb Forms: - Medication Reconciliation Form kb - Thank You Letter kb - Antibiotic Education kb - Prescription Opioid Use kb - Patient Portal Instructions kb - Leadership Thank You Letter kb Prescriptions: - mupirocin 2 % Topical ointment - apply 1 application by TOPICAL route 3 times per day; 1 unit; Refills: 0, kb Product Selection Permitted Signatures: Dispatcher [employer] Leesa Marshall, ADVERTISEMENT COMPOSITOR-C ADVERTISEMENT COMPOSITOR-Amber Hernández, RN ELIAZAR Radha Whyte RN RN Corrections: (The following items were deleted from the chart) 10:27 10:13 Counseling: I had a detailed discussion with the patient and/or guardian kb regarding the historical points, exam findings, and any diagnostic results supporting the discharge/admit diagnosis, lab results, radiology results, the need for outpatient follow up, a family practitioner, a general surgeon, to return to the emergency department if symptoms worsen or persist or if there are any questions or concerns that arise at home, kb
--- NOTE | 2023-06-25 10:29 | ER ---
Nurse's Notes [facility] Name: Sierra Tejada Age: 73 yrs Sex: Female : 1950 Arrival Date: 06/25/2023 Time: 08:23 Bed 7 Private MD: Diagnosis: Cutaneous abscess of chest wall-right breast;Cellulitis of chest wall-right breast Presentation: 06/25 08:31 Chief complaint: Patient states: had a [facility] from [facility] ago [facility], it has not healed properly , she started running fever. Coronavirus screen: At this time, the client does not indicate any symptoms associated with coronavirus-19. Ebola Screen: Patient negative for fever greater than or equal to 101.5 degrees Fahrenheit, and additional compatible Ebola Virus Disease symptoms Patient denies exposure to infectious person. Patient denies travel to an Ebola-affected area in the 21 days before illness onset. No symptoms or risks identified at this time. Initial Sepsis Screen: Does the patient meet any 2 criteria? No. Patient's initial sepsis screen is negative. Does the patient have a suspected source of infection? No. Patient's initial sepsis screen is negative. Risk Assessment: Do you want to hurt yourself or someone else? Patient reports no desire to harm self or others. 08:31 Method Of Arrival: Ambulatory iw 08:31 Acuity: ANNA 3 iw Historical: - Allergies: 08:32 atorvastatin; iw 08:32 Iodine; iw 08:32 Isosorbide Mononitrate; iw 08:32 Losartan; iw - Home Meds: 09:11 amlodipine 5 mg tab 1 tab once daily [Active]; aspirin 325 mg Oral TbEC 1 tab once hb daily [Active]; Coreg CR 80 mg Oral CM24 1 cap once daily [Active]; furosemide 20 mg Oral tab 1 tab Every other day [Active]; levothyroxine 125 mcg tab 1 tab once daily [Active]; loratadine 10 mg Oral tab 1 tab as needed [Active]; Premarin 1.25 mg Oral tab 1 tab WEEKLY [Active]; olmesartan 40 mg Oral once daily [Active]; propafenone 325 mg Oral cp12 1 cap daily [Active]; vitamin E 1,000 unit Oral cap 1000 unit daily [Active]; - PMHx: 08:32 CAD; Intestinal problems/pain; Myocardial infarction; Hypertension; iw - Immunization history:: Adult Immunizations up to date. - Social history:: Smoking status: Patient denies any tobacco usage or history of. Screenin:54 [facility] ED Fall Risk Assessment (Adult) Score/Fall Risk Level 0 - 2 = Low Risk hb Oriented to surroundings, Maintained a safe environment. Abuse screen: Denies threats or abuse. Denies injuries from another. Nutritional screening: No deficits noted. Tuberculosis screening: No symptoms or risk factors identified. Assessment: 08:46 Reassessment: Dr. Talbot at bedside. hb 08:54 General: Appears in no apparent distress. Behavior is calm, cooperative. Neuro: Level hb of Consciousness is awake, alert, obeys commands, Oriented to person, place, time, situation. Cardiovascular: Patient's skin is warm and dry. Respiratory: Respiratory effort is even, unlabored, Respiratory pattern is regular, symmetrical. GI: No signs and/or symptoms were reported involving the gastrointestinal system. : No signs and/or symptoms were reported regarding the genitourinary system. EENT: No signs and/or symptoms were reported regarding the EENT system. Derm: abscess on rt breast. Musculoskeletal: No signs and/or symptoms reported regarding the musculoskeletal system. 09:29 Reassessment: US at bedside. hb 09:47 Reassessment: Patient appears in no apparent distress at this time. Patient and/or hb family updated on plan of care and expected duration. Pain level reassessed. Patient is alert, oriented x 3, equal unlabored respirations, skin warm/dry/pink. 10:25 Reassessment: Patient appears in no apparent distress at this time. Patient and/or hb family updated on plan of care and expected duration. Pain level reassessed. Patient is alert, oriented x 3, equal unlabored respirations, skin warm/dry/pink. 10:40 Reassessment: Discharge pending completion of IV ABX. hb 11:45 Reassessment: Patient appears in no apparent distress at this time. Patient and/or hb family updated on plan of care and expected duration. Pain level reassessed. Patient is alert, oriented x 3, equal unlabored respirations, skin warm/dry/pink. Vital Signs: 08:33 BP 133 / 75; Pulse 79; Resp 16; Temp 98(O); Pulse Ox 98% on R/A; Pain 8/10; iw 09:10 Weight 90.72 kg; Height 5 ft. 6 in. ; hb 09:47 BP 127 / 71; Pulse 70; Resp 15; Pulse Ox 98% on R/A; Pain 5/10; hb 10:40 BP 123 / 67; Pulse 69; Resp 16; Pulse Ox 99% on R/A; hb 11:45 BP 126 / 76; Pulse 71; Resp 15; Pulse Ox 99% on R/A; hb 09:10 Body Mass Index 32.28 (90.72 kg, 167.64 cm) hb 08:33 Pain Scale: Adult iw 09:47 Pain Scale: Adult hb ED Course: 08:26 Patient arrived in ED. ts1 08:30 Leesa Jackson FNP-C is PHCP. kb 08:30 Lori Talbot MD is Attending Physician. kb 08:32 Triage completed. iw 08:33 Arm band placed on. iw 08:54 Patient has correct armband on for positive identification. Provided Education on: . hb 09:10 No provider procedures requiring assistance completed. hb 09:15 Radha Whyte, RN is Primary Nurse. hb 09:30 First set of blood cultures drawn by me, Second set of blood cultures drawn by me. ds4 09:31 Inserted saline lock: 20 gauge in right forearm, using aseptic technique. Blood ds4 collected. 09:47 US Extrmty Nonvasular Limited Sent. hb 09:50 US Extrmty Nonvasular Limited In Process Unspecified. EDMS 12:03 IV discontinued, intact, bleeding controlled, No redness/swelling at site. hb Administered Medications: 09:46 Drug: Piperacillin-Tazobactam IVPB 3.375 grams Route: IVPB; Infused Over: 60 mins; hb Site: right forearm; 10:17 Follow up: Response: No adverse reaction; IV Status: Completed infusion; IV Intake: hb 100ml 10:18 Drug: vancoMYCIN IVPB 1 grams Route: IVPB; Infused Over: 2 hrs; Site: right forearm; hb Medication: 08:55 VIS not applicable for this client. hb Intake: 10:17 IV: 100ml; Total: 100ml. hb Outcome: 10:28 Discharge ordered by . kb 12:03 Discharged to home ambulatory. hb 12:03 Condition: stable 12:03 Discharge instructions given to patient, Instructed on discharge instructions, follow up and referral plans. medication usage, Demonstrated understanding of instructions, follow-up care, medications. 12:03 Patient left the ED. hb Signatures: Dispatcher [employer] EDLeesa Ray, ALLERGIST IMMUNOLOGIST-C ALLERGIST IMMUNOLOGIST-Amber Hernández, RN ELIAZAR Irineo Jimenez ds4 Radha Whyte RN RN hb Simpson, Tanya, PAS PAS ts1 Corrections: (The following items were deleted from the chart) 08:42 08:33 BP 133 / 75; Pulse 79bpm; Resp 16bpm; Pulse Ox 98% RA; Temp 98F Oral; iw walter
[2023-06-25 12:18] VITALS: TEMP 98
[2023-06-25 12:30] VITALS: O2SAT 99
[2023-06-25 12:31] VITALS: BP 126/76
--- NOTE | 2023-06-27 16:53 | EKG ---
Test Date: 2023-06-25 Test Time: 09:01:20 Relief Pilot: LIANNA MEASUREMENT RESULTS: Intervals: Rate: 74 ND: QRSD: 92 QT: 402 QTc: 446 Pinson: P: ND: QRS: -50 T: 19 INTERPRETIVE STATEMENTS: Accelerated Junctional rhythm Left axis deviation Anterior infarct, age undetermined Abnormal ECG Compared to ECG 03/06/2021 00:27:54 Accelerated junctional rhythm now present Sinus rhythm no longer present Incomplete right bundle-branch block no longer present Myocardial infarct finding still present Electronically Signed On 06-27-23 16:46:06 CDT by Oliver Benitez
== END 2023-06-25 12:03 | disposition home or self-care (01) ==
LOC: ER 08:23
DX: L03.313 Cellulitis of chest wall (principal); I10 Essential (primary) hypertension; I25.2 Old myocardial infarction; I25.10 Atherosclerotic heart disease of native coronary artery without angina pectoris; Z79.82 Long term (current) use of aspirin; Z88.8 Allergy status to other drugs, medicaments and biological substances; Z91.048 Other nonmedicinal substance allergy status
CPT/HCPCS: 96365; 93005; 87040 ×2; 85025; 36415; 85610; 83605; 85730; 80053; 76882; 96375; 99284; J2543; J7050

== ENCOUNTER 2024-02-04 21:15 | Emergency (ER) | payer OTHER ==
--- OUTSIDE RECORDS SUMMARY | 2024-02-04 21:18 | XMS REPORT | Clinical Summary ---
Author Name Unknown Organization [facility] [place] Address [address] [place] [address] Care Team Providers Care Manager Contracting Name Role Phone Aleks Condon MD Unavailable [phone] Aleks Condon MD Unavailable [phone] Elisha Watt Unavailable [phone] Richy Urrutia MD Unavailable [phone] Yo Gonzales MD Primary Care Provider [phone] Richy Urrutia MD Unavailable [phone] Allergies Active Allergy Reactions Criticality Noted Date Comments Iodinated Contrast Media Swelling,Palpitations High 02/16/2016 CPR was done Medications Medication Sig Dispensed Refills Start Date End Date Status carvedilol (COREG CR) 80 mg 24 hr capsule Take 1 capsule (80 mg) by mouth. 0 Active estrogens, conjugated, (PREMARIN) 1.25 mg tablet Take 1 tablet (1.25 mg) by mouth every other day. 3x a week 0 Active propafenone (RYTHMOL SR) 325 mg 12 hr capsule Take 1 capsule (325 mg) by mouth daily. 0 Active levothyroxine (SYNTHROID, LEVOTHROID) 125 mcg tablet Take by mouth daily. 0 Active vitamin E 1,000 units capsule Take by mouth daily. 0 Active amLODIPine (NORVASC) 5 mg tablet Take 1 tablet (5 mg) by mouth daily. 0 Active loratadine 10 mg cap Take by mouth as needed. 0 Active furosemide (LASIX) 20 mg tablet Take 1 tablet (20 mg) by mouth 3 (three) times a week Monday, Monday and Monday. 0 03/31/2020 Active TURMERIC ORAL Take by mouth. 0 Active b complex vitamins tablet Take 1 tablet by mouth daily. 0 Active clopidogrel (PLAVIX) 75 mg tablet Take 1 tablet (75 mg) by mouth daily. 0 Active aspirin 325 mg EC tablet Take 1 tablet (325 mg) by mouth twice daily. 0 Active petrolat,wht/min oil/sod chl (DRY EYES OPHTHALMIC) Apply 3 Drop(s) to eye at bedtime. 0 Active aspirin 81 mg cap Take 81 mg by mouth as needed. 0 08/01/2023 Discontinue d (Not Applicable) cyanocobalamin (VITAMIN B-12) 1000 mcg tablet Take 1,000 mcg by mouth daily. 0 08/01/2023 Discontinued (Not Applicable) Active Problems Problem Noted Date Diagnosed Date Histologically confirmed moderate anal dysplasia 02/28/2017 Tobacco use 02/28/2017 Essential (primary) hypertension 02/28/2017 Hypothyroidism 02/28/2017 Anxiety 02/28/2017 Encounters Date Type Department Care Team Description 08/09/2023 Telephone Colorectal Center - Colon and Rectal Surgery [facility] Main [facility], 7th [place] [address] Michelle Cardoso PA 08/01/2023 9:30 AM CDT Procedure visit MD [facility] [place] - Colorectal Surgery [address] [place] [id number] Richy Urrutia MD Atypical squamous cells of undetermined significance on cytologic smear of anus (ASC-US) 08/01/2023 8:30 AM CDT Follow-Up MD [facility] [place] - Colorectal Surgery [address] [place] [id number] Richy Urrutia MD Atypical squamous cells of undetermined significance on cytologic smear of anus (ASC-US) 08/01/2023 Travel after 02/04/2023 Immunizations Name Administration Dates Next Due Moderna SARS-CoV-2 Vaccination 01/27/2021,2020 Surgical History Surgery Date Site/Laterality Comments MASTECTOMY, PARTIAL Right 03/2023 Medical History Medical History Date Comments Hypertension Disorder of thyroid gland 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 02/28/2017 Tobacco use 02/28/2017 Essential (primary) hypertension 02/28/2017 Hypothyroidism 02/28/2017 Anxiety 02/28/2017 Breast cancer Right Breast Social History Tobacco Use Types Packs/Day Years Used Date Smoking Tobacco: Every Day Cigarettes 1 Alcohol Use Standard Drinks/Week Comments Yes 1 (1 standard drink = 0.6 oz pur e alcohol) occaisional beer Sex and Gender Information Value Date Recorded Sex Assigned at Not on file Gender Identity Not on file Sexual Orientation Not on file Job Start Date Occupation Industry Not on file Not on file Not on file Obstetrics History Last Filed Vital Signs Vital Sign Reading Time Taken Comments Blood Pressure 138/94 08/01/2023 8:19 AM CDT Pulse 78 08/01/2023 8:19 AM CDT Temperature 36.5 C (97.7 F) 08/01/2023 8:19 AM CD T Respiratory Rate 18 08/01/2023 8:19 AM CDT Oxygen Saturation - - Inhaled Oxygen Concentration - - Weight - - Height - - Body Mass Index - - Plan of Treatment Upcoming Encounters Date Type Department Care Team Description 08/01/2024 10:00 AM CDT Follow-Up MD [facility] [place] - Colorectal Surgery [address] [place] [id number] Richy Urrutia MD [address] [place] [address] [phone] 08/01/2024 10:30 AM CDT Procedure visit MD [facility] [place] - Colorectal Surgery [address] [place] [address] Richy Urrutia MD [address] [place] [phone] Health Maintenance Due Date Last Done Comments COVID-19 Vaccine ( season) 06/23/202304/2021, 12/30/2020 Influenza Vaccine 06/23/2023 Procedures Procedure Name Priority Date/Time Associated Diagnosis Comments CYTOLOGY HPV 16/18 GENOTYPING AND HIGH RISK POOL Routine 08/01/2023 9:22 AM CDT Atypical squamous cells of undetermined significance on cytologic smear of anus (ASC-US) CYTOLOGY NON-MANAGER OF MEDICAL INTERPRETATION Routine 08/01/2023 9:22 AM CDT Atypical squamous cells of undetermined significance on cytologic smear of anus (ASC-US) after 02/04/2023 Results * (ABNORMAL) Cytology HPV 16/18 Genotyping and High Risk Pool (08/01/2023 9:22 AM CDT) HPV Type 16 Positive(A) Negative, Indetermi jessie, Invalid 08/04/2023 11:56 AM CDT [facility] HPV Type 18 Negative Negative, Indetermi jessie, Invalid 08/04/2023 11:56 AM CDT [facility] HPV High Risk Non-16/18 Negative Negative, Indetermi jessie, Invalid 08/04/2023 11:56 AM CDT [facility] Informational Points The rosario HPV Test ([facility], [place], [place]) is a qualitative in vitro diagnostic [...] test were validated and determined by the [facility] cytology laboratory. These validation analyses have confirmed the accurate performance of the assay of the fountain brush assembler's stated limit of detection for the target of the test in various specimen types. The [facility] cytology laboratory is authorized under Clinical Laboratory Improvement Amendments (CLIA) to perform high-complexity testing. The [facility] Department of Pathology is accredited by the [employer] (CAP). 08/04/2023 11:56 AM CDT [facility] Swab (specimen) (Anal Canal) Non-blood Collection / Unknown 08/01/2023 9:22 AM CDT 08/01/2023 1:13 PM CDT Michelle Cardoso [place] [facility]TOLOGY [facility] [address] [address], [place] * (ABNORMAL) Cytology Non-Machine Ii Trimmer Interpretation (08/01/2023 9:22 AM CDT) Gross Description 1 ThinPrep vial received 08/02/2023 11:57 AM CDT [facility] Major Classification Cellular atypia(A) 08/02/2023 11:57 AM CDT [facility] Diagnosis Anal canal, swab: Satisfactory for evaluation, anal transformation zone components present Atypical squamous cells of undetermined significance (ASC-US) 08/02/2023 11:57 AM CDT [facility] Retained/Biomark er Testing SR: 1 S 08/02/2023 11:57 AM CDT [facility] Informational Points Some tests reported here may have been developed and performance characteristics determined by [facility]ology and Laboratory Medicine. These tests have not been specifically cleared or approved by the U.S. Food and Drug Administration. 08/02/2023 11:57 AM CDT [facility] Swab (specimen) (Anal Canal) Non-blood Collection / Unknown 08/01/2023 9:22 AM CDT 08/01/2023 1:13 PM CDT [facility]TOLOGY [facility] [address] [address], [place] after 02/04/2023 Care Teams Manager Contracting Relationship Specialty Start Date End Date Aleks Condon MD [address] [phone] PCP - External Referring 07/02/15 Aleks Condon MD [address] [place] [id number] PCP - External Follow Up A 07/02/15 Yo Gonzales MD [address] [place] [id number] PCP - General Breast Surgery 03/29/16 Richy Urrutia MD [address] [place] [phone] PCP - External Follow Up D Colorectal Surgery 09/05/17 Elisha Watt PA [address] [place] [phone] Physician Mattress Maker 12/30/15 Richy Urrutia MD [address] [place] [id number] Physician 12/30/15
[2024-02-04] MEDS ORDERED: ASPIRIN 81 MG CHEWABLE TABLET ONE (22:07)
[2024-02-04 22:46] LABS: Absolute Eosinophils 0.2 K/uL (0-0.5); Absolute Monocytes 0.5 K/uL (0.1-1.3); Eosinophils % 4.4 % (0-4.4); Lymphocytes % 40.9 % (15.3-44.8); MCH 31.2 pg (27.0-35.0); MCHC 33.3 g/dL (32.0-36.0); MCV 93.7 fL (80-100); MPV 6.9 fL (7.6-11.3); Monocytes % 11.1 % (3.3-12.3); Neutrophils % 42.6 % (41.7-73.7); Nucleated Red Blood Cells % 0.1 % (0-0); Platelets 256 thou/uL (152-406); RBC Red Blood Cell Count 4.48 M/uL (3.86-4.86); Red Cell Distribution Width 12.8 % (12.1-15.2)
[2024-02-04 22:47] LABS: PT Prothrombin Time 10.7 SECONDS (9.5-12.5); Protime INR 0.97
[2024-02-04 22:58] LABS: Anion Gap 9.6 mEq/L (5.0-15.0); Magnesium 1.9 mg/dL (1.6-2.4); Potassium 3.6 mEq/L (3.5-5.1); Troponin High Sensitivity 5.6 pg/mL (<58.9)
--- NOTE | 2024-02-05 00:21 | ER ---
Nurse's Notes [facility] Name: Sierra Tejada Age: 73 yrs Sex: Female : 1950 Arrival Date: 02/04/2024 Time: 21:15 Bed 13 Private MD: Diagnosis: Pain in right arm Presentation: 02/03 21:23 Chief complaint: Patient states: Right arm and hand started swelling last Monday. The jb4 pain has been getting worse and now it is in my shoulder and neck. Coronavirus screen: At this time, the client does not indicate any symptoms associated with coronavirus-19. Ebola Screen: No symptoms or risks identified at this time. Initial Sepsis Screen: Does the patient meet any 2 criteria? No. Patient's initial sepsis screen is negative. Does the patient have a suspected source of infection? No. Patient's initial sepsis screen is negative. Risk Assessment: Do you want to hurt yourself or someone else? Patient reports no desire to harm self or others. Onset of symptoms was February 04, 2024. Transition of care: patient was not received from another setting of care. 21:23 Method Of Arrival: Ambulatory jb4 21:23 Acuity: ANNA 3 jb4 Triage Assessment: 21:24 General: Appears in no apparent distress. comfortable, Behavior is calm, cooperative, jb4 appropriate for age. Pain: Complains of pain in right arm Pain radiates to neck Pain currently is 8 out of 10 on a pain scale. Neuro: Level of Consciousness is awake, alert, obeys commands, Oriented to person, place, time, situation. Cardiovascular: Patient's skin is warm and dry. Respiratory: Airway is patent Respiratory effort is even, unlabored, Respiratory pattern is regular, symmetrical. Derm: Skin is intact, Skin is pink, warm \T\ dry. Musculoskeletal: Circulation, motion, and sensation intact. Range of motion: intact in all extremities, Swelling present in dorsal aspect of right forearm and right hand. Historical: - Allergies: 21:24 atorvastatin; jb4 21:24 Iodine; jb4 21:24 Isosorbide Mononitrate; jb4 21:24 Losartan; jb4 - Home Meds: 21:24 amlodipine 5 mg tab 1 tab once daily [Active]; aspirin 325 mg Oral TbEC 1 tab once jb4 daily [Active]; Coreg CR 80 mg Oral CM24 1 cap once daily [Active]; furosemide 20 mg Oral tab 1 tab Every other day [Active]; levothyroxine 125 mcg tab 1 tab once daily [Active]; Premarin 1.25 mg Oral tab 1 tab WEEKLY [Active]; vitamin E 1 Oral cap 1000 unit daily [Active]; propafenone 325 mg Oral cp12 1 cap daily [Active]; - PMHx: 21:24 CAD; Myocardial infarction; Intestinal problems/pain; Hypertension; jb4 - Immunization history:: Adult Immunizations up to date. - Infectious Disease History:: Denies. - Social history:: Smoking status: Patient reports the use of cigarette tobacco products, smokes one pack cigarettes per day. Screenin:00 [facility] ED Fall Risk Assessment (Adult) History of falling in the last 3 months, ha1 including since admission No falls in past 3 months (0 pts) Confusion or Disorientation No (0 pts) Intoxicated or Sedated No (0 pts) Impaired Gait No (0 pts) Mobility Assist Device Used No (0 pt) Altered Elimination No (0 pt) Score/Fall Risk Level 0 - 2 = Low Risk Oriented to surroundings, Maintained a safe environment, Educated pt \T\ family on fall prevention, incl call for assistance when getting out of bed, Hourly rounding (assess needs \T\ fall precautionary measures) done. 22:22 Abuse screen: Denies threats or abuse. Denies injuries from another. Nutritional ha1 screening: No deficits noted. Tuberculosis screening: No symptoms or risk factors identified. Assessment: 21:21 General: Appears comfortable, Behavior is calm, cooperative. Pain: Complains of pain in ha1 right hand Pain does not radiate. Pain currently is 7 out of 10 on a pain scale. Quality of pain is described as aching. Neuro: Level of Consciousness is awake, alert, obeys commands, Oriented to person, place, time, situation. Cardiovascular: Patient's skin is warm and dry. Respiratory: Airway is patent Respiratory effort is even, unlabored, Respiratory pattern is regular, symmetrical. GI: No signs and/or symptoms were reported involving the gastrointestinal system. : No signs and/or symptoms were reported regarding the genitourinary system. Derm: Skin is pink, warm \T\ dry. Musculoskeletal: Circulation, motion, and sensation intact. Range of motion: intact in all extremities. 22:23 Reassessment: Patient and/or family updated on plan of care and expected duration. Pain ha1 level reassessed. Patient is alert, oriented x 3, equal unlabored respirations, skin warm/dry/pink. 23:00 Reassessment: Patient and/or family updated on plan of care and expected duration. Pain ha1 level reassessed. Patient is alert, oriented x 3, equal unlabored respirations, skin warm/dry/pink. 02/04 00:00 Reassessment: Patient and/or family updated on plan of care and expected duration. Pain ha1 level reassessed. Patient is alert, oriented x 3, equal unlabored respirations, skin warm/dry/pink. Vital Signs: 02/03 21:23 BP 161 / 100; Pulse 79; Resp 18; Temp 100(O); Pulse Ox 100% on R/A; Weight 74.84 kg jb4 (R); Height 5 ft. 7 in. (R); Pain 8/10; 21:55 BP 155 / 99; Pulse 76; Resp 17 S; Pulse Ox 96% on R/A; ha1 23:00 BP 140 / 76; Pulse 64; Resp 17 S; Pulse Ox 98% on R/A; ha1 02/04 00:00 BP 128 / 76; Pulse 60; Resp 18 S; Temp 97.9; Pulse Ox 98% on R/A; ha1 02/03 21:23 Body Mass Index 25.84 (74.84 kg, 170.18 cm) jb4 02/03 21:23 Pain Scale: Adult 4 ED Course: 02/03 21:20 Patient arrived in ED. gm2 21:21 Patient has correct armband on for positive identification. Placed in gown. Bed in low ha1 position. Call light in reach. Side rails up X 1. 21:24 Ez Pereyra PA is PHCP. cp 21:24 Lori Talbot MD is Attending Physician. cp 21:24 Triage completed. jb4 21:24 Arm band placed on. jb4 22:03 Mary Han, ELIAZAR is Primary Nurse. ha1 22:15 Inserted saline lock: 20 gauge in left forearm, using aseptic technique. Blood ha1 collected. 22:18 Basic Metabolic Panel Sent. ha1 22:18 CBC with Diff Sent. ha1 22:18 Magnesium Sent. ha1 22:18 NT PRO-BNP Sent. ha1 22:18 PT-INR Sent. ha1 22:18 Troponin HS Sent. ha1 22:23 Provided Education on: MEDICATION ADMINISTRATION . ha1 22:51 UPPER EXTREMITY VENOUS UNILATE In Process Unspecified. EDMS 23:04 XRAY Chest (1 view) In Process Unspecified. EDMS 02/04 00:32 No provider procedures requiring assistance completed. IV discontinued, intact, ha1 bleeding controlled, No redness/swelling at site. Pressure dressing applied. Administered Medications: 02/03 22:18 Drug: Aspirin PO Chewable Tablet 324 mg PO once; 81 mg tablets x 4 Route: PO; ha1 23:00 Follow up: Response: No adverse reaction ha1 Medication: 22:22 VIS not applicable for this client. ha1 Outcome: 02/04 00:19 Discharge ordered by MD. cp 00:32 Discharged to home ambulatory, ha1 00:32 Condition: stable 00:32 Discharge instructions given to patient, Instructed on discharge instructions, follow up and referral plans. medication usage, Demonstrated understanding of instructions, follow-up care, medications, Prescriptions given X 1, 00:37 Patient left the ED. ha1 Signatures: Dispatcher [employer] EDMS Ez Pereyra PA PA cp Bryson, James, RN RN jb4 Mary Han RN RN ha1 Susan Goyal 2 Corrections: (The following items were deleted from the chart) 02/03 23:33 23:32 Reassessment: Patient and/or family updated on plan of care and expected ha1 duration. Pain level reassessed. Patient is alert, oriented x 3, equal unlabored respirations, skin warm/dry/pink. ha1
--- NOTE | 2024-02-05 00:21 | EDPHYS ---
Physician Documentation [facility] Name: Sierra Tejada Age: 73 yrs Sex: Female : 1950 Arrival Date: 02/04/2024 Time: 21:15 Bed 13 Private MD: ED Physician Lori Talbot HPI: 02/03 22:00 This 73 yrs old Female presents to ER via Ambulatory with complaints of Arm Pain, Hand cp Swelling. 22:00 The patient or guardian complains of pain, that is acute, swelling, tenderness. The cp complaints affect the right arm. 22:00 Onset: The symptoms/episode began/occurred last Monday. cp 22:00 Treatment prior to arrival includes: no previous treatment. Associated signs and cp symptoms: Pertinent negatives: fever, chest pain, shortness of breath. Patient reports history of partial right mastectomy with lymph node removal last year. had recent blood drawn from right arm. Historical: - Allergies: 21:24 atorvastatin; jb4 21:24 Iodine; jb4 21:24 Isosorbide Mononitrate; jb4 21:24 Losartan; jb4 - Home Meds: 21:24 amlodipine 5 mg tab 1 tab once daily [Active]; aspirin 325 mg Oral TbEC 1 tab once jb4 daily [Active]; Coreg CR 80 mg Oral CM24 1 cap once daily [Active]; furosemide 20 mg Oral tab 1 tab Every other day [Active]; levothyroxine 125 mcg tab 1 tab once daily [Active]; Premarin 1.25 mg Oral tab 1 tab WEEKLY [Active]; vitamin E 1 Oral cap 1000 unit daily [Active]; propafenone 325 mg Oral cp12 1 cap daily [Active]; - PMHx: 21:24 CAD; Myocardial infarction; Intestinal problems/pain; Hypertension; jb4 - Immunization history:: Adult Immunizations up to date. - Infectious Disease History:: Denies. - Social history:: Smoking status: Patient reports the use of cigarette tobacco products, smokes one pack cigarettes per day. ROS: 22:05 Constitutional: Negative for body aches, chills, fever, poor PO intake, cp 22:05 Cardiovascular: Negative for chest pain, palpitations, cp 22:05 Respiratory: Negative for cough, shortness of breath, wheezing, 22:05 Abdomen/GI: Negative for abdominal pain, vomiting, diarrhea, constipation, cp 22:05 Back: Negative for pain at rest, pain with movement, 22:05 MS/extremity: Positive for pain, swelling, tenderness, of the right hand and right arm, Negative for injury or acute deformity, decreased range of motion, paresthesias, 22:05 Skin: Negative for cellulitis, rash, 22:05 Neuro: Negative for altered mental status, dizziness, headache, numbness, syncope, weakness, 22:05 All other systems are negative, Exam: 22:10 Constitutional: The patient appears in no acute distress, alert, awake, cp non-diaphoretic, non-toxic, well developed, well nourished, 22:10 Head/Face: Normocephalic, atraumatic. cp 22:10 Eyes: Periorbital structures: appear normal, Conjunctiva: normal, Sclera: no appreciated abnormality, Lids and lashes: appear normal, bilaterally, 22:10 ENT: External ear(s): are unremarkable, Nose: is normal, Mouth: Lips: moist, Oral mucosa: pink and intact, moist, Posterior pharynx: is normal, airway is patent, no erythema, no exudate, 22:10 Neck: ROM/movement: is normal, is supple, without pain, no range of motions limitations, 22:10 Chest/axilla: Inspection: normal, Breasts: scar right breast, 22:10 Cardiovascular: Rate: normal, Rhythm: regular, Pulses: Pulses are 2+ in right radial artery. JVD: is not appreciated, 22:10 Respiratory: the patient does not display signs of respiratory distress, Respirations: normal, no use of accessory muscles, no retractions, labored breathing, is not present, Breath sounds: are clear throughout, no decreased breath sounds, no stridor, no wheezing, 22:10 Abdomen/GI: Inspection: abdomen appears normal, Palpation: abdomen is soft and non-tender, in all quadrants, 22:10 Back: pain, is absent, ROM is normal, 22:10 Musculoskeletal/extremity: Extremities: noted in the right arm: very mild general swelling, skin without erythema, mild general tenderness to palpation, 22:10 Neuro: Orientation: to person, place \T\ time. Mentation: is normal, Motor: moves all fours, strength is normal, Sensation: no obvious gross deficits, 22:15 ECG was reviewed by the Attending Physician. cp Vital Signs: 21:23 BP 161 / 100; Pulse 79; Resp 18; Temp 100(O); Pulse Ox 100% on R/A; Weight 74.84 kg jb4 (R); Height 5 ft. 7 in. (R); Pain 8/10; 21:55 BP 155 / 99; Pulse 76; Resp 17 S; Pulse Ox 96% on R/A; ha1 23:00 BP 140 / 76; Pulse 64; Resp 17 S; Pulse Ox 98% on R/A; ha1 02/04 00:00 BP 128 / 76; Pulse 60; Resp 18 S; Temp 97.9; Pulse Ox 98% on R/A; ha1 02/03 21:23 Body Mass Index 25.84 (74.84 kg, 170.18 cm) 4 02/03 21:23 Pain Scale: Adult jb4 MDM: 02/03 21:29 Patient medically screened. 22:00 Differential diagnosis: DVT, cellulitis, lymphedema, chest mass. 02/04 00:18 Data reviewed: vital signs, nurses notes, lab test result(s), EKG, radiologic studies, plain films, ultrasound, and as a result, I will discharge patient. 00:18 I considered the following discharge prescriptions or medication management in the emergency department Medications were administered in the Emergency Department. See MAR. Independent interpretation of the following test(s) in the Emergency Department EKG: See my EKG interpretation above. 00:18 Care significantly affected by the following chronic conditions: Hypertension. Counseling: I had a detailed discussion with the patient and/or guardian regarding the historical points, exam findings, and any diagnostic results supporting the discharge/admit diagnosis, lab results, radiology results. 02/03 21:55 Order name: Basic Metabolic Panel; Complete Time: 23:23 02/03 23:24 Interpretation: Normal except: GLUC 114. 02/03 21:55 Order name: CBC with Diff; Complete Time: 23:23 02/04 00:07 Interpretation: Normal except: MPV 6.9. 02/03 21:55 Order name: Magnesium; Complete Time: 23:23 02/03 21:55 Order name: NT PRO-BNP; Complete Time: 23:23 02/04 00:07 Interpretation: Reviewed. 02/03 21:55 Order name: PT-INR; Complete Time: 23:23 cp 02/03 21:55 Order name: Troponin HS; Complete Time: 23:23 cp 02/03 21:55 Order name: XRAY Chest (1 view) 02/03 22:21 Order name: UPPER EXTREMITY VENOUS UNILATE EDMT 02/03 21:55 Order name: EKG; Complete Time: 21:56 cp 02/03 21:55 Order name: Cardiac monitoring; Complete Time: 22:18 cp 02/03 21:55 Order name: EKG - Nurse/Tech; Complete Time: 22:18 cp 02/03 21:55 Order name: IV Saline Lock; Complete Time: 22:18 cp 02/03 21:55 Order name: Labs collected and sent; Complete Time: 22:18 cp 02/03 21:55 Order name: O2 Per Protocol; Complete Time: 22:18 cp 02/03 21:55 Order name: O2 Sat Monitoring; Complete Time: 22:18 cp EC/14 22:15 Rate is 63 beats/min. Rhythm is regular. NM interval is normal. QRS interval is cp prolonged at 104 msec. QT interval is normal. T waves are Inverted in lead aVR. Interpreted by me. Reviewed by me. Administered Medications: 22:18 Drug: Aspirin PO Chewable Tablet 324 mg PO once; 81 mg tablets x 4 Route: PO; ha1 23:00 Follow up: Response: No adverse reaction ha1 Disposition Summary: 02/05/24 00:19 Discharge Ordered Notes: Location: Home cp Problem: new cp Symptoms: have improved cp Condition: Stable cp Diagnosis - Pain in right arm cp Followup: cp - With: Private Physician - When: 2 - 3 days - Reason: Recheck today's complaints Discharge Instructions: - Discharge Summary Sheet cp - Musculoskeletal Pain cp - How to Use Cold Therapy cp - Heat Therapy cp Forms: - Medication Reconciliation Form cp - Thank You Letter cp - Antibiotic Education cp - Prescription Opioid Use cp - Patient Portal Instructions cp - Leadership Thank You Letter cp Prescriptions: - Mobic 7.5 mg Oral Tablet - take 1 tablet ORAL route once daily take with food; 20 tablet; Refills: 0, cp Product Selection Permitted Signatures: Dispatcher [employer] EDMT Ez Pereyra PA PA cp Bryson, James RN RN jb4 Mary Han RN RN ha1 Corrections: (The following items were deleted from the chart) 21:56 21:56 BASIC METABOLIC PANEL+C.LAB.BRZ ordered. EDMS EDMS 21:56 21:56 CBC+H.LAB.BRZ ordered. EDMS EDMS 21:56 21:56 MAGNESIUM+C.LAB.BRZ ordered. EDMS EDMS 21:56 21:56 PROBNP+C.LAB.BRZ ordered. EDMS EDMS 21:56 21:56 PROTIME (+INR)+COAG.LAB.BRZ ordered. EDMS EDMS 21:56 21:56 Troponin High Sensitivity+C.LAB.BRZ ordered. EDMS EDMS 22:21 21:56 Extremity Venous Uni Ltd+US.RAD.BRZ ordered. EDMS EDMS
[2024-02-05 04:37] VITALS: BP 128/76; TEMP 97.9; O2SAT 98
--- NOTE | 2024-02-07 22:31 | RAD REPORT ---
EXAM DESCRIPTION: US - UPPER EXTREMITY VENOUS UNILATE - 02/04/2024 10:49 pm CLINICAL HISTORY: 73 years Female Pain;Swelling COMPARISON: None TECHNIQUE: Real-time and Doppler sonography of the superficial and deep venous systems of the right upper extremity was performed. Grayscale, color, and spectral analysis was utilized. FINDINGS: No intraluminal thrombus is seen at any level. Satisfactory compressibility all levels. No abnormal fluid collections seen. IMPRESSION: Negative study. No sonographic evidence for superficial or deep venous thrombosis involv ing the right upper extremity. Electronically signed by: Lolly Bloom MD 02/04/2024 11:29 PM CDT Due to temporary technical issues with the PACS/Fluency reporting system, reports are being signed by the in house radiologists without review as a courtesy to insure prompt reporting. The interpreting radiologist is fully responsible for the content of the report.
--- NOTE | 2024-02-07 22:33 | RAD REPORT ---
EXAM DESCRIPTION: RAD - Chest Single View - 02/05/2024 5:51 am CLINICAL HISTORY: The patient is 73 years old and is Female; right arm pain and swelling TECHNIQUE: Frontal view of the chest. COMPARISON: No relevant prior studies available. FINDINGS: LUNGS: Unremarkable. No consolidation. PLEURAL SPACE: Unremarkable. No pneumothorax. HEART: Unremarkable. No cardiomegaly. MEDIASTINUM: Unremarkable. Normal mediastinal contour. BONES/JOINTS: Degenerative change of the shoulders and spine is noted. No acute fracture. SOFT TISSUES: Surgical clips are present within the right chest. UPPER ABDOMEN: Unremarkable as visualized. IMPRESSION: No acute cardiopulmonary process. Electronically signed by: Promise Nava MD 02/04/2024 11:26 PM CDT Due to temporary technical issues with the PACS/Fluency reporting system, reports are being signed by the in house radiologists without review as a courtesy to insure prompt reporting. The interpreting radiologist is fully responsible for the content of the report.
== END 2024-02-05 00:37 | disposition home or self-care (01) ==
LOC: ER 21:15
DX: M79.601 Pain in right arm (principal); I10 Essential (primary) hypertension; I25.10 Atherosclerotic heart disease of native coronary artery without angina pectoris; F17.210 Nicotine dependence, cigarettes, uncomplicated; Z90.11 Acquired absence of right breast and nipple; Z79.82 Long term (current) use of aspirin; Z88.8 Allergy status to other drugs, medicaments and biological substances; Z91.048 Other nonmedicinal substance allergy status
CPT/HCPCS: 36415; 71045; 80048; 83735; 83880; 84484; 85025; 85610; 93005; 93971; 99284